=== PATIENT | female | born 1995 | race Hispanic/Latino ===

== ENCOUNTER 2018-09-04 23:50 | Emergency (ER) | payer OTHER ==
[~2018-09-04] VITALS: Ht 170.2 cm; Wt 129.3 kg
--- OUTSIDE RECORDS SUMMARY | 2018-09-04 23:52 | XMS REPORT ---
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 Allergies, Adverse Reactions, Alerts Allergy Name Allergy Type Status Severity Reaction(s) Onset Date Inactive Date Treating Clinician Comments No Known Allergies DA Active U 2017-11-01 00:00:00 Medications This patient has no known medications.
[2018-09-05] MEDS ORDERED: LABETALOL HCL 5 MG/ML 20ML VIAL IV STA (00:03)
[2018-09-05] MEDS ORDERED: SODIUM CHLORIDE 0.9% 1000ML 1,000 ML IV STA (00:03)
[2018-09-05] MEDS ORDERED: MAGNESIUM SULFATE 2 GM/50 ML IV ONE (00:15)
[2018-09-05 00:52] LABS: BASOPHILS # (AUTO) 0.1 (0.0-0.1); BASOPHILS % 0.3 % (0.0-1.0); EOSINOPHILS # (AUTO) 0.1 (0.0-0.4); EOSINOPHILS % 0.7 % (0.0-6.0); HEMOGLOBIN 9.1 g/dL (12.0-16.0); LYMPHOCYTES # (AUTO) 2.6 (1.0-3.2); LYMPHOCYTES % 18.2 % (18.0-39.1); MEAN CORPUSCULAR HEMOGLOBIN 21.9 pg (28-32); MEAN CORPUSCULAR HGB CONC 31.4 g/dL (31-35); MEAN CORPUSCULAR VOLUME 69.9 fL (81-99); MONOCYTES # (AUTO) 0.9 (0.2-0.8); MONOCYTES % 6.5 % (4.4-11.3); NEUTROPHILS # (AUTO) 10.6 (2.1-6.9); NEUTROPHILS % 73.3 % (38.7-80.0); PLATELET COUNT 316 x10e3/uL (140-360); RED BLOOD COUNT 4.15 x10e6/uL (3.6-5.1)
[2018-09-05 01:02] LABS: BILIRUBIN,URINE NEGATIVE (NEGATIVE); CLARITY,URINE CLEAR (CLEAR); COLOR,URINE YELLOW (YELLOW); KETONES,URINE NEGATIVE (NEGATIVE); LEUKOCYTE ESTERASE ,URINE NEGATIVE (NEGATIVE); NITRITE,URINE NEGATIVE (NEGATIVE); PROTEIN,URINE DIPSTICK TRACE (NEGATIVE); URINE UROBILINOGEN 0.2 mg/dL (0.2 - 1); WBC,URINE (MAN) 0-5 /HPF (0-5)
[2018-09-05 01:04] LABS: BACTERIA,URINE MANY /HPF; EPITHELIAL CELLS,URINE MANY /LPF; RBC,URINE 0-5 /HPF (0-5)
[2018-09-05 01:13] LABS: ALANINE AMINOTRANSFERASE 9 IU/L (0-55); ALBUMIN 2.7 g/dL (3.5-5.0); ALBUMIN/GLOBULIN RATIO 0.6 (0.8-2.0); ALKALINE PHOSPHATASE 124 IU/L (40-150); ANION GAP 17.2 mmol/L (8-16); BLOOD UREA NITROGEN 9 mg/dL (7-26); BUN/CREATININE RATIO 14 (6-25); CALCIUM 9.6 mg/dL (8.4-10.2); CARBON DIOXIDE 18 mmol/L (22-29); CHLORIDE 106 mmol/L (98-107); CREATININE, SERUM 0.65 mg/dL (0.57-1.11); EST GLOMERULAR FILTRATION RATE > 60 ML/MIN (60-); GLUCOSE 93 mg/dL (74-118); LIPASE 17 U/L (8-78); POTASSIUM 4.2 mmol/L (3.5-5.1); SODIUM 137 mmol/L (136-145)
[2018-09-05] MEDS ORDERED: MAGNESIUM SULFATE 2GM/50ML 100 ML IV ONE (01:43)
[2018-09-05] MEDS ORDERED: MAGNESIUM SULFATE 2GM/50ML 150 ML IV ONE (01:45)
--- NOTE | 2018-09-05 01:45 | NUR ---
PT RECEIVING X3 2GM BAGS OF MAG SULFATE OVER [address] TEJEDA.
[2018-09-05 01:58] VITALS: BP 138/88
== END 2018-09-05 01:50 | disposition short-term general hospital (02) ==
LOC: ER 23:50
DX: O11.3 Pre-existing hypertension with pre-eclampsia, third trimester (principal); R10.812 Left upper quadrant abdominal tenderness
CPT/HCPCS: 36415; 80053; 81001; 83690; 85025; 99284; J3475; J7030

== ENCOUNTER 2019-12-18 15:28 | Emergency (ER) | payer MEDICARE ==
[~2019-12-18] VITALS: Ht 170.2 cm; Wt 129.3 kg
[~2019-12-18 15:28] MED LIST: FIORICET 50-301 EACH PO
--- OUTSIDE RECORDS SUMMARY | 2019-12-18 15:32 | XMS REPORT ---
Author Author [facility] t Organization [facility] Address 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 Allergies, Adverse Reactions, Alerts Allergy Name Allergy Type Status Severity Reaction(s) Onset Date Inacti ve Date Treating Clinician Comments Source No Known Allergies DA Active U 2018-10-25 00:00:00 [facility] No Known Allergies DA Active U 2017-11-01 00:00:00 [facility] Medications Ordered Medication Name Filled Medication Name Start Date Stop Da te Current Medication? Ordering Clinician Indication Dosage Frequency Signature (SIG) Comments Components Source Butalb/Acetaminophen/Caffeine (Fioricet 50-300-40 Mg C apsule) 1 Each Capsule Butalb/Acetaminophen/Caffeine (Fioricet 50-300-40 Mg Capsule) 1 Each Capsule 2019-07-23 00:00:00 Yes Comfort Strong Do 1 Every 8 Hours [facility] Procedures Procedure Date / Time Performed Performing Clinician Sour e Computed tomography of brain without radiopaque contrast 00:00:00 [facility] Encounters Start Date/Time End Date/Time Encounter Type Admission Type [facility] Care Department Encounter ID Source 2019-07-23 15:40:00 2019-07-23 21:15:00 Departed Emergency Room 1 [facility] [id number] [facility] 2018-09-04 23:50:00 2018-09-05 01:50:00 Departed Emergency Room [facility] [id number] [facility] Results Test Description Test Time Test Comments Results Result Comments Source Novel Coronavirus 2018 nCoV 2019-12-15 07:50:00 Test Item Novel Coronavirus 2019 nCoV (test code = COVID19) Negative Nega tive Does patient have the clinical criteria consistent with COVID-19? YIs the patien t going to be discharged home? Y STREPTOCOCCUS PCR [id number] 08:22:00* Test Item Value Reference Range Interpretation Comments STREPTOCOCCUS DYSGALACTIAE (test code = STREPGC) NEGATIVE FOR G/C N EGATIVE STREPA MOLECULAR (test code = STREPAMOL) NEGATIVE FOR GRP A NEGATIV E URINALYSIS [id number] 01:18:00* Test Item Value Reference Range Interpretation Comments UA COLOR (test code = COLU) YELLOW YELLOW UA APPEARANCE (test code = APPU) CLEAR CLEAR UA GLUCOSE DIPSTICK (test code = DGLUU) norm mg/dL NEGATIVE UA BILIRUBIN DIPSTICK (test code = BILU) NEGATIVE mg/dL NEGATIVE UA KETONE DIPSTICK (test code = KETU) neg mg/dL NEGATIVE UA SPECIFIC GRAVITY (test code = SGU) 1.015 1.001-1.035 UA BLOOD DIPSTICK (test code = SHERYL) neg David/uL NEGATIVE UA PH DIPSTICK (test code = MORIS) 8.0 5.0-8.0 UA PROTEIN DIPSTICK (test code = PROU) neg mg/dL Neg-15 UA UROBILINIOGEN DIPSTICK (test code = URO) norm mg/dL 0.0-0.2 UA NITRITE DIPSTICK (test code = LUIS CARLOS) NEGATIVE NEGATIVE UA LEUKOCYTE ESTERASE DIPSTICK (test code = LEUU) 25 Jean Paul/uL (Tra ce) uL NEGATIVE A UA WBC (test code = WBCU) 3-5 per HPF 0-5 UA RBC (test code = RBCU) 0-2 per HPF 0-5 UA EPITHELIAL CELLS (test code = EPIU) Moderate (5-10/hpf) per HPF Few UA BACTERIA (test code = BACU) MODERATE per HPF NONE A Urine Source? Clean CatchUR HCG [id number] 01:18:00* Test Item Value Reference Range Interpretation Comments UR HCG QUAL (test code = HCGQLU) POSITIVE This HCGQL test is NOT applicable for MALE patients.Check with nurse about probable order error.If Tumor Marker Test needed, nurse should order test "HCGTU"(Test #550.93337) Urine Source? Clean CatchURINALYSIS [id number] 01:05:00* Test Item Value Reference Range Interpretation Comments UA COLOR (test code = COLU) YELLOW YELLOW UA APPEARANCE (test code = APPU) CLEAR CLEAR UA GLUCOSE DIPSTICK (test code = DGLUU) norm mg/dL NEGATIVE UA BILIRUBIN DIPSTICK (test code = BILU) NEGATIVE mg/dL NEGATIVE UA KETONE DIPSTICK (test code = KETU) neg mg/dL NEGATIVE UA SPECIFIC GRAVITY (test code = SGU) 1.015 1.001-1.035 UA BLOOD DIPSTICK (test code = SHERYL) neg David/uL NEGATIVE UA PH DIPSTICK (test code = MORIS) 8.0 5.0-8.0 UA PROTEIN DIPSTICK (test code = PROU) neg mg/dL Neg-15 UA UROBILINIOGEN DIPSTICK (test code = URO) norm mg/dL 0.0-0.2 UA NITRITE DIPSTICK (test code = LUIS CARLOS) NEGATIVE NEGATIVE UA LEUKOCYTE ESTERASE DIPSTICK (test code = LEUU) 25 Jean Paul/uL (Tra ce) uL NEGATIVE A UA WBC (test code = WBCU) per HPF 0-5 UA RBC (test code = RBCU) per HPF 0-5 UA EPITHELIAL CELLS (test code = EPIU) per HPF Few UA BACTERIA (test code = BACU) per HPF NONE Urine Source? Clean CatchUR HCG [id number] 01:05:00* Test Item Value Reference Range Interpretation Comments UR HCG QUAL (test code = HCGQLU) POSITIVE This HCGQL test is NOT applicable for MALE patients.Check with nurse about probable order error.If Tumor Marker Test needed, nurse should order test "HCGTU"(Test #550.77242) Urine Source? Clean CatchURINALYSIS [id number] 01:03:00* Test Item Value Reference Range Interpretation Comments UA COLOR (test code = COLU) YELLOW YELLOW UA APPEARANCE (test code = APPU) CLEAR CLEAR UA GLUCOSE DIPSTICK (test code = DGLUU) norm mg/dL NEGATIVE UA BILIRUBIN DIPSTICK (test code = BILU) NEGATIVE mg/dL NEGATIVE UA KETONE DIPSTICK (test code = KETU) neg mg/dL NEGATIVE UA SPECIFIC GRAVITY (test code = SGU) 1.015 1.001-1.035 UA BLOOD DIPSTICK (test code = SHERYL) neg David/uL NEGATIVE UA PH DIPSTICK (test code = MORIS) 8.0 5.0-8.0 UA PROTEIN DIPSTICK (test code = PROU) neg mg/dL Neg-15 UA UROBILINIOGEN DIPSTICK (test code = URO) norm mg/dL 0.0-0.2 UA NITRITE DIPSTICK (test code = LUIS CARLOS) NEGATIVE NEGATIVE UA LEUKOCYTE ESTERASE DIPSTICK (test code = LEUU) 25 Jean Paul/uL (Tra ce) uL NEGATIVE A UA WBC (test code = WBCU) per HPF 0-5 UA RBC (test code = RBCU) per HPF 0-5 UA EPITHELIAL CELLS (test code = EPIU) per HPF Few UA BACTERIA (test code = BACU) per HPF NONE Urine Source? Clean CatchUR HCG [id number] 01:03:00* Test Item Value Reference Range Interpretation Comments UR HCG QUAL (test code = HCGQLU) Urine Source? Clean Catch- US PREG UT [id number] 00:20:00 Name: ANDREAS SAINI [facility] : 1995 Age/S: 23 / F [address] [facility] Unit #: [id number] Loc: [place] [address] Phys: Holly Dudley MD Acct: [id number] Di s Date: Status: REG ER PHONE #: Exam Date: 11/18/2019 0006 FAX #: [phone] Reason: ABD PAIN AND EXAMS: CPT CODE: [id number] US PREG UT TR ANSVAGINAL [id number] AFTER HOURS SERVICE ON: 12:16 AM Pelvic Ultrasound Location Code M12 History: ABD PAIN AND Technique: Longitudi nal and transverse real-time landaverde scale and color flow evaluation was perf ormed. Doppler spectral waveform images were also obtained. TRANSABDOMINAL Findings: The uterus measures 10 x 7 x 7 cm and is anteverted. Ovaries are not visualized. TRANSVAGIN AL Findings: The uterus contains a 6 weeks, 5 days IUP. The yolk sac is visualized. heart rate is 127 bpm. There is no subchorionic hemorrhage. Right ovary measures 39 x 20 x 28 mm. Left ovary is not visualized. Adequate ovarian flow with arterial inflow and venous outflow noted. There is no free fluid. Impression: 6 weeks, 5 days live IUP. No subchorionic hemorrhage. Nonvisualization of the left ovary. at 0020 Reported and signed by: Shelia alcantara M.D. CC: Edwige Medina MD chnologist: Salma Acuña RDMS Trnscb Date/T sridevi: 11/19/2019 (0020) [email or web address] Orig Print D/T: S: 11/18 (0023) Probe: [id number] PAGE 1 Sign ed Report - DUP AB/PEL/SC [id number] 00:20:00 Name: ANDREAS SAINI [facility] : 1995 Age/S: 23 / F [address] [facility] Unit #: [id number] Loc: [place], [place] [address] Phys: Holly Dudley MD Acct: [id number] Di s Date: Status: REG ER PHONE #: Exam Date: 11/18/2019 0006 FAX #: Reason: ABD PAIN AND EXAMS: CPT CODE: [id number] DUP AB/PEL/SC COMP 11448 AFTER HOURS SERVICE ON: 12:16 AM Pelvic Ultrasound Location Code M12 History: ABD PAIN AND Technique: Longitudi nal and transverse real-time landaverde scale and color flow evaluation was perf ormed. Doppler spectral waveform images were also obtained. TRANSABDOMINAL Findings: The uterus measures 10 x 7 x 7 cm and is anteverted. Ovaries are not visualized. TRANSVAGIN AL Findings: The uterus contains a 6 weeks, 5 days IUP. The yolk sac is visualized. heart rate is 127 bpm. There is no subchorionic hemorrhage. Right ovary measures 39 x 20 x 28 mm. Left ovary is not visualized. Adequate ovarian flow with arterial inflow and venous outflow noted. There is no free fluid. Impression: 6 weeks, 5 days live IUP. No subchorionic hemorrhage. Nonvisualization of the left ovary. at 0020 Reported and signed by: Shelia alcantara M.D. CC: Edwige Medina MD chnologist: Salma Acuña RDMS Trnscb Date/T sridevi: 11/19/2019 (0020) [email or web address] Orig Print D/T: S: 11/18 (0023) Probe: PAGE 1 Sign ed Report - US PREG 1ST [id number] 00:20:00 Name: ANDREAS SAINI [facility] : 1995 Age/S: 23 / F [address] [facility] Unit #: [id number] Loc: [place] [address] Phys: Holly Dudley MD Acct: [id number] Di s Date: Status: REG ER PHONE #: Exam Date: 11/18/2019 000 FAX #: [phone] Reason: ABD PAIN AND EXAMS: CPT CODE: [id number] US PREG 1ST T RIMTR 15616 AFTER HOURS SERVICE ON: 12:16 AM Pelvic Ultrasound Location Code M12 History: ABD PAIN AND Technique: Longitudi nal and transverse real-time landaverde scale and color flow evaluation was perf ormed. Doppler spectral waveform images were also obtained. TRANSABDOMINAL Findings: The uterus measures 10 x 7 x 7 cm and is anteverted. Ovaries are not visualized. TRANSVAGIN AL Findings: The uterus contains a 6 weeks, 5 days IUP. The yolk sac is visualized. heart rate is 127 bpm. There is no subchorionic hemorrhage. Right ovary measures 39 x 20 x 28 mm. Left ovary is not visualized. Adequate ovarian flow with arterial inflow and venous outflow noted. There is no free fluid. Impression: 6 weeks, 5 days live IUP. No subchorionic hemorrhage. Nonvisualization of the left ovary. at 0020 Reported and signed by: Shelia alcantara M.D. CC: Edwige Medina MD chnologist: Salma Acuña RDND Trnscb Date/T sridevi: 11/19/2019 (0020) [email or web address] Orig Print D/T: S: 11/18 (0023) Probe: PAGE 1 Sign ed Report - US ABDOMEN [id number] 00:16:00 Name: ANDREAS SAINI [facility] : 1995 Age/S: 23 / F [address] [facility] Unit #: [id number] Loc: [place] [address] Phys: Holly Dudley MD Acct: [id number] Di s Date: Status: REG ER PHONE #: [phone] Exam Date: 11/18/2019 6114 FAX #: Reason: UPPER ABD PAIN EXAMS: CPT CODE: [id number] US ABDOMEN LTD 69851 AFTER HOURS SERVICE ON: 12:14 AM Abdominal Ultrasound, Right Upper Quadrant Location Code M12 History: UPPER ABD PAIN T echnique: Real-time landaverde scale, Doppler spectral analysis and Doppler colo r flow evaluation was performed using a dedicated transducer. Fin dings: The liver is mildly enlarged measuring 17.6 cm, coarse and echogenic, suggesting underlying hepatocellular disease which is most com monly secondary to fatty infiltration. This does not exclude other hepati c etiologies. Liver contour is not nodular. The pancreas is limited. The gallbladder is contracted. There is no pericholecystic fluid. There are no gallstones. There is no biliary dilatation. Common bile duct measures 2.9 mm. Right kidney measures 12 x 5 x 6 cm. No h ydronephrosis or calculi are seen. Margins of the right kidney are subopti elmer visualized. Adequate arterial inflow and venous outflow noted in the kidney. Aorta and IVC as visualized are within normal limits. Impression: Findings in the liver suggesting fatty infiltration. at 0016 Reported and signed by: Shelia Robert M.D. CC: Edwige Medina MD Technologist: Salma Acuña RDMS Trnnyb Date/Time: 11/19/2019 (0016) [email or web address] Orig Print D/T: S: 11/19/2019 (0019) Probe: PAGE 1 Signed Report HCG SERUM [id number] 23:51:00* Test Item Value Reference Range Interpretation Comments HCG SERUM BETA (test code = HCG) 75508.0 mIU/ml 0-5.0 H INTERPRETATION:B-HCG LEVELS <6 SHOULD BE CONSIDERED "NEGATIVE."VALUES BETWEEN 6-25 MIU/ML NEED TO BE RETESTED WITHIN 48hrs. 0-1 WEEKS AFTER CONCEPTION 0-50 MIU/ML1-2 WEEKS AFTER CONCEPTION 40-300 MIU/ML2-3 WEEKS AFTER CONCEPTION 100-1,000 MIU/ML3-4 WEEKS AFTER CONCEPTION 500-6,000 MIU/ML1-2 MONTHS AFTER CONCEPTION 5,000-200,000 MIU/ML2-3 MONTHS AFTER CONCEPTION 10,000-100,000 MIU/ML2ND TRIMESTER 3,000-50,000 MIU/ML3RD TRIMESTER 1,000-50,000 MIU/ML BASIC METABOLIC [id number] 23:34:00* Test Item Value Reference Range Interpretation Comments SODIUM (test code = NA) 139 mmol/L 136-145 N POTASSIUM (test code = K) 3.7 mmol/L 3.5-5.1 N CHLORIDE (test code = CL) 103 mmol/L 101-109 N CARBON DIOXIDE (test code = CO2) 24.9 mmol/L 21-32 N ANION GAP (test code = GAP) 15 mmol/L 10-20 N GLUCOSE (test code = GLU) 90 mg/dL 74-106 N BLOOD UREA NITROGEN (test code = BUN) 10 mg/dL 3-21 N GLOMERULAR FILTRATION RATE (test code = GFR) > 60 mL/min >=60 Estimated GFR by using Modified MDRD formula.Chronic kidney disease is defined as either kidney damageor GFR <60 mL/min/1.73 m2 for >3 months. CREATININE (test code = CREAT) 0.80 mg/dL 0.55-1.3 N BUN/CREATININE RATIO (test code = BUN/CREA) 12.5 10-20 N CALCIUM (test code = CA) 8.2 mg/dL 8.4-10.2 L HEPATIC FUNCTION [id number] 23:34:00* Test Item Value Reference Range Interpretation Comments TOTAL PROTEIN (test code = PROT) 7.7 g/dL 6.5-8.4 N ALBUMIN (test code = ALB) 3.4 g/dL 3.4-4.8 N GLOBULIN (test code = GLOB) 4.3 G/DL 1-10 N ALBUMIN/GLOBULIN RATIO (test code = A/G) 0.79 RATIO 0.75-1.50 N BILIRUBIN TOTAL (test code = BILT) 0.10 mg/dL 0.0-1.0 N BILIRUBIN DIRECT (test code = BILD) 0.10 mg/dL 0.0-0.30 N SGOT/AST (test code = AST) 14 U/L 6-32 N SGPT/ALT (test code = ALT) 19 U/L 12-78 N N ote: Change in REFERENCE RANGE due to new reagent method. ALKALINE PHOSPHATASE TOTAL (test code = ALKP) 93 U/L 38-126 N [id number] 23:34:00* Test Item Value Reference Range Interpretation Comments LIPASE (test code = LIP) 92 U/L 128-270 L CBC W/O [id number] 23:16:00* Test Item Value Reference Range Interpretation Comments WHITE BLOOD CELL (test code = WBC) 13.0 K/mm3 4.5-12.5 H RED BLOOD CELL (test code = RBC) 4.74 mill/mm3 3.7-5.2 N HEMOGLOBIN (test code = HGB) 9.6 gram/dL 11.5-15.5 L HEMATOCRIT (test code = HCT) 31.7 % 36.0-46.0 L MEAN CELL VOLUME (test code = MCV) 66.9 fL 80-98 L MEAN CELL HGB (test code = MCH) 20.3 picogram 27.0-33.0 L MEAN CELL HGB CONCETRATION (test code = MCHC) 30.3 gram/dL 33.0-36. 0 L RED CELL DISTRIBUTION WIDTH (test code = RDW) 17.4 % 11.6-16. 2 H RED CELL DISTRIBUTION WIDTH SD (test code = RDW-SD) 42.0 fL 37 .0-51.0 N PLATELET COUNT (test code = PLT) 360 K/mm3 150-450 N MEAN PLATELET VOLUME (test code = MPV) 10.6 fL 6.7-11.0 N URINALYSIS [id number] 23:06:00* Test Item Value Reference Range Interpretation Comments UA COLOR (test code = COLU) YELLOW YELLOW UA APPEARANCE (test code = APPU) CLEAR CLEAR UA GLUCOSE DIPSTICK (test code = DGLUU) norm mg/dL NEGATIVE UA BILIRUBIN DIPSTICK (test code = BILU) NEGATIVE mg/dL NEGATIVE UA KETONE DIPSTICK (test code = KETU) neg mg/dL NEGATIVE UA SPECIFIC GRAVITY (test code = SGU) 1.010 1.001-1.035 UA BLOOD DIPSTICK (test code = SHERYL) neg David/uL NEGATIVE UA PH DIPSTICK (test code = MORIS) 7.0 5.0-8.0 UA PROTEIN DIPSTICK (test code = PROU) neg mg/dL Neg-15 UA UROBILINIOGEN DIPSTICK (test code = URO) 4 mg/dL (2+) mg/dL 0.0 -0.2 A UA NITRITE DIPSTICK (test code = LUIS CARLOS) NEGATIVE NEGATIVE UA LEUKOCYTE ESTERASE DIPSTICK (test code = LEUU) 25 Jean Paul/uL (Tra ce) uL NEGATIVE A UA WBC (test code = WBCU) 5-10 per HPF 0-5 A UA RBC (test code = RBCU) 0-2 per HPF 0-5 UA EPITHELIAL CELLS (test code = EPIU) Rare (0-1/hpf) per HPF Few UA BACTERIA (test code = BACU) MODERATE per HPF NONE A Urine Source? Clean CatchUR HCG [id number] 23:06:00* Test Item Value Reference Range Interpretation Comments UR HCG QUAL (test code = HCGQLU) POSITIVE This HCGQL test is NOT applicable for MALE patients.Check with nurse about probable order error.If Tumor Marker Test needed, nurse should order test "HCGTU"(Test #550.85121) Urine Source? Clean CatchDRUGS OF ABUSE SCREEN [id number] 23:06:00* Test Item Value Reference Range Interpretation Comments URN COCAINE (test code = COCAURN) NEGATIVE NEGATIVE URN CANNABINOIDS (test code = CANNABURN) POSITIVE NEGATIVE A URN AMPHETAMINE (test code = AMPHETURN) NEGATIVE NEGATIVE URN BARBITURATE (test code = BARBITURN) NEGATIVE NEGATIVE URN BENZODIAZEPINE (test code = BENZOURN) NEGATIVE NEGATIVE URN OPIATES (test code = OPIATURN) NEGATIVE NEGATIVE URN PHENCYCLIDINE (PCP) (test code = PHENCURN) NEGATIVE NEGATIV E Urine Source? Clean CatchURINALYSIS [id number] 23:01:00* Test Item Value Reference Range Interpretation Comments UA COLOR (test code = COLU) YELLOW YELLOW UA APPEARANCE (test code = APPU) CLEAR CLEAR UA GLUCOSE DIPSTICK (test code = DGLUU) norm mg/dL NEGATIVE UA BILIRUBIN DIPSTICK (test code = BILU) NEGATIVE mg/dL NEGATIVE UA KETONE DIPSTICK (test code = KETU) neg mg/dL NEGATIVE UA SPECIFIC GRAVITY (test code = SGU) 1.010 1.001-1.035 UA BLOOD DIPSTICK (test code = SHERYL) neg David/uL NEGATIVE UA PH DIPSTICK (test code = MORIS) 7.0 5.0-8.0 UA PROTEIN DIPSTICK (test code = PROU) neg mg/dL Neg-15 UA UROBILINIOGEN DIPSTICK (test code = URO) 4 mg/dL (2+) mg/dL 0.0 -0.2 A UA NITRITE DIPSTICK (test code = LUIS CARLOS) NEGATIVE NEGATIVE UA LEUKOCYTE ESTERASE DIPSTICK (test code = LEUU) 25 Jean Paul/uL (Tra ce) uL NEGATIVE A UA WBC (test code = WBCU) 5-10 per HPF 0-5 A UA RBC (test code = RBCU) 0-2 per HPF 0-5 UA EPITHELIAL CELLS (test code = EPIU) Rare (0-1/hpf) per HPF Few UA BACTERIA (test code = BACU) MODERATE per HPF NONE A Urine Source? Clean CatchUR HCG [id number] 23:01:00* Test Item Value Reference Range Interpretation Comments UR HCG QUAL (test code = HCGQLU) POSITIVE This HCGQL test is NOT applicable for MALE patients.Check with nurse about probable order error.If Tumor Marker Test needed, nurse should order test "HCGTU"(Test #550.82469) Urine Source? Clean CatchDRUGS OF ABUSE SCREEN [id number] 23:01:00* Test Item Value Reference Range Interpretation Comments URN COCAINE (test code = COCAURN) NEGATIVE URN CANNABINOIDS (test code = CANNABURN) NEGATIVE URN AMPHETAMINE (test code = AMPHETURN) NEGATIVE URN BARBITURATE (test code = BARBITURN) NEGATIVE URN BENZODIAZEPINE (test code = BENZOURN) NEGATIVE URN OPIATES (test code = OPIATURN) NEGATIVE URN PHENCYCLIDINE (PCP) (test code = PHENCURN) NEGATIV E Urine Source? Clean CatchURINALYSIS [id number] 22:56:00* Test Item Value Reference Range Interpretation Comments UA COLOR (test code = COLU) YELLOW YELLOW UA APPEARANCE (test code = APPU) CLEAR CLEAR UA GLUCOSE DIPSTICK (test code = DGLUU) norm mg/dL NEGATIVE UA BILIRUBIN DIPSTICK (test code = BILU) NEGATIVE mg/dL NEGATIVE UA KETONE DIPSTICK (test code = KETU) neg mg/dL NEGATIVE UA SPECIFIC GRAVITY (test code = SGU) 1.010 1.001-1.035 UA BLOOD DIPSTICK (test code = SHERYL) neg David/uL NEGATIVE UA PH DIPSTICK (test code = MORIS) 7.0 5.0-8.0 UA PROTEIN DIPSTICK (test code = PROU) neg mg/dL Neg-15 UA UROBILINIOGEN DIPSTICK (test code = URO) 4 mg/dL (2+) mg/dL 0.0 -0.2 A UA NITRITE DIPSTICK (test code = LUIS CARLOS) NEGATIVE NEGATIVE UA LEUKOCYTE ESTERASE DIPSTICK (test code = LEUU) 25 Jean Paul/uL (Tra ce) uL NEGATIVE A UA WBC (test code = WBCU) per HPF 0-5 UA RBC (test code = RBCU) per HPF 0-5 UA EPITHELIAL CELLS (test code = EPIU) per HPF Few UA BACTERIA (test code = BACU) per HPF NONE Urine Source? Clean CatchUR HCG [id number] 22:56:00* Test Item Value Reference Range Interpretation Comments UR HCG QUAL (test code = HCGQLU) POSITIVE This HCGQL test is NOT applicable for MALE patients.Check with nurse about probable order error.If Tumor Marker Test needed, nurse should order test "HCGTU"(Test #550.96009) Urine Source? Clean CatchDRUGS OF ABUSE SCREEN [id number] 22:56:00* Test Item Value Reference Range Interpretation Comments URN COCAINE (test code = COCAURN) NEGATIVE URN CANNABINOIDS (test code = CANNABURN) NEGATIVE URN AMPHETAMINE (test code = AMPHETURN) NEGATIVE URN BARBITURATE (test code = BARBITURN) NEGATIVE URN BENZODIAZEPINE (test code = BENZOURN) NEGATIVE URN OPIATES (test code = OPIATURN) NEGATIVE URN PHENCYCLIDINE (PCP) (test code = PHENCURN) NEGATIV E Urine Source? Clean CatchURINALYSIS [id number] 22:55:00* Test Item Value Reference Range Interpretation Comments UA COLOR (test code = COLU) YELLOW UA APPEARANCE (test code = APPU) CLEAR UA BILIRUBIN DIPSTICK (test code = BILU) NEGATIVE UA SPECIFIC GRAVITY (test code = SGU) 1.001-1.035 UA PH DIPSTICK (test code = MORIS) 5.0-8.0 UA UROBILINIOGEN DIPSTICK (test code = URO) mg/dL 0.0-0.2 UA NITRITE DIPSTICK (test code = LUIS CARLOS) NEGATIVE UA LEUKOCYTE ESTERASE DIPSTICK (test code = LEUU) uL NEGA TIVE UA WBC (test code = WBCU) per HPF 0-5 UA RBC (test code = RBCU) per HPF 0-5 UA EPITHELIAL CELLS (test code = EPIU) per HPF Few UA BACTERIA (test code = BACU) per HPF NONE Urine Source? Clean CatchUR HCG [id number] 22:55:00* Test Item Value Reference Range Interpretation Comments UR HCG QUAL (test code = HCGQLU) POSITIVE This HCGQL test is NOT applicable for MALE patients.Check with nurse about probable order error.If Tumor Marker Test needed, nurse should order test "HCGTU"(Test #550.57387) Urine Source? Clean CatchDRUGS OF ABUSE SCREEN [id number] 22:55:00* Test Item Value Reference Range Interpretation Comments URN COCAINE (test code = COCAURN) NEGATIVE URN CANNABINOIDS (test code = CANNABURN) NEGATIVE URN AMPHETAMINE (test code = AMPHETURN) NEGATIVE URN BARBITURATE (test code = BARBITURN) NEGATIVE URN BENZODIAZEPINE (test code = BENZOURN) NEGATIVE URN OPIATES (test code = OPIATURN) NEGATIVE URN PHENCYCLIDINE (PCP) (test code = PHENCURN) NEGATIV E Urine Source? Clean CatchUrine [id number] 17:20:00* Test Item Value Reference Range Interpretation Comments Urine Color (test code = 5778-6) YELLOW YELLOW [facility] [id number] 17:20:00* Test Item Value Reference Range Interpretation Comments Urine Clarity (test code = 88903-5) SL CLOUDY CLEAR [facility] [id number] 17:20:00 * Test Item Value Reference Range Interpretation Comments Urine Specific [place] (test code = 5811-5) 1.015 1.010-1.02 5 [facility] [id number] 17:20:00* Test Item Value Reference Range Interpretation Comments Urine pH (test code = 07628-0) 6.5 5-7 [facility] Leukocyte [id number] 17:20:00* Test Item Value Reference Range Interpretation Comments Urine Leukocyte Esterase (test code = 5799-2) TRACE NEGATIVE H [facility] [id number] 17:20:00* Test Item Value Reference Range Interpretation Comments Urine Nitrite (test code = 16800-5) NEGATIVE NEGATIVE [facility] Daaqboz0870-40-74 17:20:00* Test Item Value Reference Range Interpretation Comments Urine Protein (test code = 5804-0) TRACE NEGATIVE H [facility] Glucose (UA)2019-07-23 17:20:00* Test Item Value Reference Range Interpretation Comments Urine Glucose (UA) (test code = 2349-9) NEGATIVE NEGATIVE [facility] [id number] 17:20:00* Test Item Value Reference Range Interpretation Comments Urine Ketones (test code = 62663-9) NEGATIVE NEGATIVE [facility] Xtyefbaakuoi0892-57-00 17:20:00* Test Item Value Reference Range Interpretation Comments Urine Urobilinogen (test code = 05351-3) 0.2 0.2-1 [facility] Kxoueehdr5729-92-34 17:20:00* Test Item Value Reference Range Interpretation Comments Urine Bilirubin (test code = 1978-6) SMALL NEGATIVE [facility] Pdjzg8865-50-79 17:20:00* Test Item Value Reference Range Interpretation Comments Urine Blood (test code = 35557-2) NEGATIVE [facility]GATIVE [facility] [id number] 17:20:00* Test Item Value Reference Range Interpretation Comments Urine WBC (test code = 5821-4) 6-10 0-5 H [facility] [id number] 17:20:00* Test Item Value Reference Range Interpretation Comments Urine RBC (test code = 60037-5) 0-5 0-5 [facility] [id number] 17:20:00* Test Item Value Reference Range Interpretation Comments Urine Bacteria (test code = 30296-5) RARE NONE [facility] Epithelial [id number] 17:20:00 * Test Item Value Reference Range Interpretation Comments Urine Epithelial Cells (test code = 14080-9) FEW NONE [facility] [id number] 17:20:00* Test Item Value Reference Range Interpretation Comments Urine Test (test code = 2106-3) NEGATIVE NEGATIVE [facility]IN [id number] 16:37:00 [facility] [address] [place] [address] Patient Name: ANDREAS SAINI MR #: [id number] : 1995 Age/Sex: 23/F Req #: [id number] Adm Physician: Ordered by: COMFORT STRONG DO Report #: [id number] Location: ER Room/Bed: Procedure: CT/CT BRAIN WO Exam Date: 07/23/19 Exam Time: 160 0 REPORT STATUS: Signed EXAMINAT ION: Head CT HISTORY: Severe headache for last 3 days COMPARISON: None. TECHNIQUE: Multidetector axial images were obtained without contrast from the foramen magnum to the vertex . The images were reconstructed using brain and bone algorithms. Thin section brain images were reformatted into coronal and sagittal planes. Image quality: Motion/streaking artifact limits the evaluati on of the skull base and posterior cranial fossa. Dose modulation, iterative reconstruction, and/or weight based adjustment of the mA/kV was utilized to r educe the radiation dose to as low as reasonably achievable. FINDINGS: Parenchyma: 1. No abnormal densities. 2. No mass or hemorrhage. No CT evidence of acute territorial vascular insult. Extra-ax ial spaces:No abnormal density. No extra-axial fluid collections Brain v olume: Normal for age. Ventricles: No hydrocephalus or displacement. Arteries: No density suggestive of thrombus. Dural sinuses: No abn ormal density. Extra-axial spaces: No abnormal density. Foramen magnum: No mass, Chiari malformation, or basilar invagination. Sella: No obvious mass. Paranasal/mastoid sinuses: Imaged portions unremarkable. Skull/Scalp: No lytic or blastic lesions. No fractures. IMPRESSI ON: No intracranial abnormalities. Signed by: Dr. Jolene Rubio M.D. on 07/23/2019 4:38 PM Dictated By: JOLENE RUBIO MD 37 Transcribed By: RAFAEL on 07/23/191637 COPY TO: COMFORT STRONG DO URINALYSIS [id number] 22:30:00* Test Item Value Reference Range Interpretation Comments UA COLOR (test code = COLU) YELLOW YELLOW UA APPEARANCE (test code = APPU) HAZY CLEAR A UA GLUCOSE DIPSTICK (test code = DGLUU) norm mg/dL NEGATIVE UA BILIRUBIN DIPSTICK (test code = BILU) NEGATIVE mg/dL NEGATIVE UA KETONE DIPSTICK (test code = KETU) neg mg/dL NEGATIVE UA SPECIFIC GRAVITY (test code = SGU) 1.025 1.001-1.035 UA BLOOD DIPSTICK (test code = SHERYL) 250 (4+) David/uL NEGATIVE A UA PH DIPSTICK (test code = MORIS) 6.0 5.0-8.0 UA PROTEIN DIPSTICK (test code = PROU) 15 (TRACE) mg/dL Neg-15 A UA UROBILINIOGEN DIPSTICK (test code = URO) norm mg/dL 0.0-0.2 UA NITRITE DIPSTICK (test code = LUIS CARLOS) NEGATIVE NEGATIVE UA LEUKOCYTE ESTERASE DIPSTICK (test code = LEUU) 500 Jean Paul/uL (3+) u L NEGATIVE A UA WBC (test code = WBCU) >100 per HPF 0-5 A UA RBC (test code = RBCU) >20 per HPF 0-5 UA EPITHELIAL CELLS (test code = EPIU) Moderate (5-10/hpf) per HPF Few UA BACTERIA (test code = BACU) MODERATE per HPF NONE A Urine Source? Clean CatchUR HCG [id number] 22:30:00* Test Item Value Reference Range Interpretation Comments UR HCG QUAL (test code = HCGQLU) NEGATIVE This HCGQL test is NOT applicable for MALE patients.Check with nurse about probable order error.If Tumor Marker Test needed, nurse should order test "HCGTU"(Test #550.16109) Urine Source? Clean CatchDRUGS OF ABUSE SCREEN [id number] 22:30:00* Test Item Value Reference Range Interpretation Comments URN COCAINE (test code = COCAURN) NEGATIVE NEGATIVE URN CANNABINOIDS (test code = CANNABURN) POSITIVE NEGATIVE A URN AMPHETAMINE (test code = AMPHETURN) NEGATIVE NEGATIVE URN BARBITURATE (test code = BARBITURN) NEGATIVE NEGATIVE URN BENZODIAZEPINE (test code = BENZOURN) NEGATIVE NEGATIVE URN OPIATES (test code = OPIATURN) NEGATIVE NEGATIVE URN PHENCYCLIDINE (PCP) (test code = PHENCURN) NEGATIVE NEGATIV E Urine Source? Clean CatchURINALYSIS [id number] 22:25:00* Test Item Value Reference Range Interpretation Comments UA COLOR (test code = COLU) YELLOW YELLOW UA APPEARANCE (test code = APPU) HAZY CLEAR A UA GLUCOSE DIPSTICK (test code = DGLUU) norm mg/dL NEGATIVE UA BILIRUBIN DIPSTICK (test code = BILU) NEGATIVE mg/dL NEGATIVE UA KETONE DIPSTICK (test code = KETU) neg mg/dL NEGATIVE UA SPECIFIC GRAVITY (test code = SGU) 1.025 1.001-1.035 UA BLOOD DIPSTICK (test code = SHERYL) 250 (4+) David/uL NEGATIVE A UA PH DIPSTICK (test code = MORIS) 6.0 5.0-8.0 UA PROTEIN DIPSTICK (test code = PROU) 15 (TRACE) mg/dL Neg-15 A UA UROBILINIOGEN DIPSTICK (test code = URO) norm mg/dL 0.0-0.2 UA NITRITE DIPSTICK (test code = LUIS CARLOS) NEGATIVE NEGATIVE UA LEUKOCYTE ESTERASE DIPSTICK (test code = LEUU) 500 Jean Paul/uL (3+) u L NEGATIVE A UA WBC (test code = WBCU) >100 per HPF 0-5 A UA RBC (test code = RBCU) >20 per HPF 0-5 UA EPITHELIAL CELLS (test code = EPIU) Moderate (5-10/hpf) per HPF Few UA BACTERIA (test code = BACU) MODERATE per HPF NONE A Urine Source? Clean CatchUR HCG [id number] 22:25:00* Test Item Value Reference Range Interpretation Comments UR HCG QUAL (test code = HCGQLU) NEGATIVE This HCGQL test is NOT applicable for MALE patients.Check with nurse about probable order error.If Tumor Marker Test needed, nurse should order test "HCGTU"(Test #550.63547) Urine Source? Clean CatchDRUGS OF ABUSE SCREEN [id number] 22:25:00* Test Item Value Reference Range Interpretation Comments URN COCAINE (test code = COCAURN) NEGATIVE URN CANNABINOIDS (test code = CANNABURN) NEGATIVE URN AMPHETAMINE (test code = AMPHETURN) NEGATIVE URN BARBITURATE (test code = BARBITURN) NEGATIVE URN BENZODIAZEPINE (test code = BENZOURN) NEGATIVE URN OPIATES (test code = OPIATURN) NEGATIVE URN PHENCYCLIDINE (PCP) (test code = PHENCURN) NEGATIV E Urine Source? Clean CatchCBC W/AUTO [id number] 07:21:00* Test Item Value Reference Range Interpretation Comments WHITE BLOOD CELL (test code = WBC) 12.64 x10 3/uL 4.5-11.0 H RED BLOOD CELL (test code = RBC) 4.10 x10 6/uL 3.54-5.02 N HEMOGLOBIN (test code = HGB) 8.5 g/dL 11.0-15.0 L HEMATOCRIT (test code = HCT) 29.2 % 33.0-45.0 L MEAN CELL VOLUME (test code = MCV) 71.2 fL 81.0-99.0 L MEAN CELL HGB (test code = MCH) 20.7 pg 27.0-33.0 L MEAN CELL HGB CONCETRATION (test code = MCHC) 29.1 g/dL 33.0-37. 0 L RED CELL DISTRIBUTION WIDTH CV (test code = RDW) 18.1 % 11.5- 14.5 H RED CELL DISTRIBUTION WIDTH SD (test code = RDW-SD) 45.4 fL 37 .0-54.0 N PLATELET COUNT (test code = PLT) 450 x10 3/uL 150-400 H MEAN PLATELET VOLUME (test code = MPV) 11.0 fL 7.0-9.0 H NEUTROPHIL % (test code = NT%) 71.3 % 56.0-77.0 N IMMATURE GRANULOCYTE % (test code = IG%) 1.8 % 0.0-2.0 N LYMPHOCYTE % (test code = LY%) 16.9 % 14.0-32.0 N MONOCYTE % (test code = MO%) 7.4 % 4.8-9.0 N EOSINOPHIL % (test code = EO%) 2.1 % 0.3-3.7 N BASOPHIL % (test code = BA%) 0.5 % 0.0-2.0 N NUCLEATED RBC % (test code = NRBC%) 0.2 % 0-0 H NEUTROPHIL # (test code = NT#) 9.00 x10 3/uL 2.0-7.6 H IMMATURE GRANULOCYTE # (test code = IG#) 0.23 x10 3/uL 0.00-0.03 H LYMPHOCYTE # (test code = LY#) 2.14 x10 3/uL 1.0-3.8 N MONOCYTE # (test code = MO#) 0.94 x10 3/uL 0.1-0.8 H EOSINOPHIL # (test code = EO#) 0.27 x10 3/uL 0.0-0.2 H BASOPHIL # (test code = BA#) 0.06 x10 3/uL 0.0-0.2 N NUCLEATED RBC # (test code = NRBC#) 0.02 x10 3/uL 0.0-0.1 N MANUAL DIFF REQUIRED (test code = MDIFF) NO BASIC METABOLIC [id number] 07:20:00* Test Item Value Reference Range Interpretation Comments SODIUM (test code = NA) 135 mEq/L 134-147 N POTASSIUM (test code = K) 3.4 mEq/L 3.4-5.0 N CHLORIDE (test code = CL) 95 mEq/L 100-108 L CARBON DIOXIDE (test code = CO2) 34 mEq/L 21-33 H ANION GAP (test code = GAP) 9 0-20 N GLUCOSE (test code = GLU) 90 mg/dL 70-110 N BLOOD UREA NITROGEN (test code = BUN) 33 mg/dL 7-18 H GLOMERULAR FILTRATION RATE (test code = GFR) 55.7 110-120 L Units of measure = ml/min/1.73 m2 CREATININE (test code = CREAT) 1.2 mg/dL 0.6-1.3 N CALCIUM (test code = CA) 9.4 mg/dL 8.0-10.5 N [id number] 06:25:00* Test Item Value Reference Range Interpretation Comments GLUBED (test code = GLUBED) 96 MG/DL 70-110 N Performed by certified metal pickling equipment operator at [facility] [id number] 00:54:00* Test Item Value Reference Range Interpretation Comments GLUBED (test code = GLUBED) 98 MG/DL 70-110 N Performed by certified metal pickling equipment operator at [facility] [id number] 20:52:00* Test Item Value Reference Range Interpretation Comments GLUBED (test code = GLUBED) 115 MG/DL 70-110 H Performed by certified metal pickling equipment operator at [facility] BASIC METABOLIC [id number] 18:00:00* Test Item Value Reference Range Interpretation Comments SODIUM (test code = NA) 133 mEq/L 134-147 L POTASSIUM (test code = K) 3.5 mEq/L 3.4-5.0 N CHLORIDE (test code = CL) 93 mEq/L 100-108 L CARBON DIOXIDE (test code = CO2) 36 mEq/L 21-33 H ANION GAP (test code = GAP) 8 0-20 N GLUCOSE (test code = GLU) 102 mg/dL 70-110 N BLOOD UREA NITROGEN (test code = BUN) 29 mg/dL 7-18 H GLOMERULAR FILTRATION RATE (test code = GFR) 55.7 110-120 L Units of measure = ml/min/1.73 m2 CREATININE (test code = CREAT) 1.2 mg/dL 0.6-1.3 N CALCIUM (test code = CA) 9.3 mg/dL 8.0-10.5 N [id number] 18:00:00* Test Item Value Reference Range Interpretation Comments PHOSPHOROUS (test code = PHOS) 7.7 mg/dL 2.5-4.9 H [id number] 18:00:00* Test Item Value Reference Range Interpretation Comments MAGNESIUM (test code = MAG) 2.60 mg/dL 1.8-2.4 H - XR CHEST 1 [id number] 07:52:00 FAX: Edwige Mcallister MD [phone] [place]: St: [facility] FAX: Mere Kapadia MD [phone] Name: ANDREAS SAINI [facility] : 1995 Age/S: 22/F [address] [place] [address] Unit #: [id number] Loc: [address] [place] [address] Phys: Mere Kapadia MD Acct: [id number] Dis Date: Status: ADM IN PHONE #: [phone] Exam Date: 10/31/2018 0748 FAX #: [phone] Reason: CHF EXAMS: CPT CODE: [id number] XR CHEST 1 V 52060 CHEST, SINGLE VIEW HISTORY: Congestive heart failure Comparison made to prior chest x-ray dated 10/30/18. FINDINGS: There has been interval improvement in bilateral lung infiltrates. The heart remains enlarged. No new pleural fluid. IMPRESSION: Improved CHF/pulmonary edema from 10/30/18. SL:01 at 0752 Reported and signed by: Enrique Rojas M.D. CC: Edwige Medina MD; Mere Kapadia MD Technologist: MERE Nye RT(R); Juani Hernández RT(R) Trnscjodee Kaufman ate/Time/By: 10/31/2018 (0752) : By: Bret Orig Print D/T: S: 10/18 (0755) PAGE 1 Signed Repor t BASIC METABOLIC [id number] 06:25:00* Test Item Value Reference Range Interpretation Comments SODIUM (test code = NA) 135 mEq/L 134-147 N POTASSIUM (test code = K) 3.9 mEq/L 3.4-5.0 N CHLORIDE (test code = CL) 95 mEq/L 100-108 L CARBON DIOXIDE (test code = CO2) 34 mEq/L 21-33 H ANION GAP (test code = GAP) 10 0-20 N GLUCOSE (test code = GLU) 89 mg/dL 70-110 N BLOOD UREA NITROGEN (test code = BUN) 21 mg/dL 7-18 H GLOMERULAR FILTRATION RATE (test code = GFR) 61.6 110-120 L Units of measure = ml/min/1.73 m2 CREATININE (test code = CREAT) 1.1 mg/dL 0.6-1.3 CALCIUM (test code = CA) 8.6 mg/dL 8.0-10.5 N [id number] 06:25:00* Test Item Value Reference Range Interpretation Comments MAGNESIUM (test code = MAG) 3.80 mg/dL 1.8-2.4 H CBC W/AUTO [id number] 05:51:00* Test Item Value Reference Range Interpretation Comments WHITE BLOOD CELL (test code = WBC) 17.29 x10 3/uL 4.5-11.0 H RED BLOOD CELL (test code = RBC) 3.92 x10 6/uL 3.54-5.02 N HEMOGLOBIN (test code = HGB) 8.0 g/dL 11.0-15.0 L HEMATOCRIT (test code = HCT) 27.7 % 33.0-45.0 L MEAN CELL VOLUME (test code = MCV) 70.7 fL 81.0-99.0 L MEAN CELL HGB (test code = MCH) 20.4 pg 27.0-33.0 L MEAN CELL HGB CONCETRATION (test code = MCHC) 28.9 g/dL 33.0-37. 0 L RED CELL DISTRIBUTION WIDTH CV (test code = RDW) 18.7 % 11.5- 14.5 H RED CELL DISTRIBUTION WIDTH SD (test code = RDW-SD) 46.0 fL 37 .0-54.0 N PLATELET COUNT (test code = PLT) 413 x10 3/uL 150-400 H MEAN PLATELET VOLUME (test code = MPV) 11.5 fL 7.0-9.0 H NEUTROPHIL % (test code = NT%) 79.8 % 56.0-77.0 H IMMATURE GRANULOCYTE % (test code = IG%) 1.4 % 0.0-2.0 N LYMPHOCYTE % (test code = LY%) 10.9 % 14.0-32.0 L MONOCYTE % (test code = MO%) 6.1 % 4.8-9.0 N EOSINOPHIL % (test code = EO%) 1.6 % 0.3-3.7 N BASOPHIL % (test code = BA%) 0.2 % 0.0-2.0 N NUCLEATED RBC % (test code = NRBC%) 0.1 % 0-0 H NEUTROPHIL # (test code = NT#) 13.80 x10 3/uL 2.0-7.6 H IMMATURE GRANULOCYTE # (test code = IG#) 0.25 x10 3/uL 0.00-0.03 H LYMPHOCYTE # (test code = LY#) 1.89 x10 3/uL 1.0-3.8 N MONOCYTE # (test code = MO#) 1.05 x10 3/uL 0.1-0.8 H EOSINOPHIL # (test code = EO#) 0.27 x10 3/uL 0.0-0.2 H BASOPHIL # (test code = BA#) 0.03 x10 3/uL 0.0-0.2 N NUCLEATED RBC # (test code = NRBC#) 0.02 x10 3/uL 0.0-0.1 N MANUAL DIFF REQUIRED (test code = MDIFF) NO [id number] 22:44:00* Test Item Value Reference Range Interpretation Comments POTASSIUM (test code = K) 4.3 mEq/L 3.4-5.0 N [id number] 22:44:00* Test Item Value Reference Range Interpretation Comments MAGNESIUM (test code = MAG) 5.60 mg/dL 1.8-2.4 HH - XR CHEST 1 [id number] 14:43:00 FAX: Edwige Mcallister MD [phone] [place]: St: ADM FAX: Mary Ann Mcfarland MD [phone] Name: ANDREAS SAINI [facility] : 1995 Age/S: 22/F [address] [place] [address] Unit #: [id number] Loc: G[address] [address] Phys: Mary Ann Tellez MD Acct: [id number] Dis Date: Status: ADM IN PHONE #: [phone] Exam Date: 10/30/2018 1430 FAX #: [phone] Reason: S/P CENTRAL LINE PLACEMENT EXAMS: CPT CODE: [id number] XR CHEST 1 V 62731 CHEST, SINGLE VIEW HISTORY: Central line placement Comparison made to 10/30/18, 0608 hours. FINDINGS: Left subclavian central venous catheter tip extends retrograde into the left internal jugular vein. Bilateral lung infiltrates are consistent with pulmonary edema. Interval improvement from 10/30/18, 0608 hours given better visualization of the left heart border. IMPRESSION: 1. Left subclavian central venous catheter extends retrograde into the left internal jugular vein. 2. Improved bilateral lung infiltrate, likely reflecting pulmonary edema. SL:01 at 4853 Reported and signed by: Enrique Rojas M.D. CC: Edwige Medina MD; Mary Ann Tellez MD Technologist: RT Freddie(David) Trnscrd Date/Time/By: (8167) : By: Bret Orig Print D/T: S: 10/30/2018 (5378) PAGE 1 Signed Report CBC W/AUTO [id number] 14:35:00* Test Item Value Reference Range Interpretation Comments WHITE BLOOD CELL (test code = WBC) 18.33 x10 3/uL 4.5-11.0 H RED BLOOD CELL (test code = RBC) 3.67 x10 6/uL 3.54-5.02 N HEMOGLOBIN (test code = HGB) 7.5 g/dL 11.0-15.0 L HEMATOCRIT (test code = HCT) 25.0 % 33.0-45.0 L MEAN CELL VOLUME (test code = MCV) 68.1 fL 81.0-99.0 L MEAN CELL HGB (test code = MCH) 20.4 pg 27.0-33.0 L MEAN CELL HGB CONCETRATION (test code = MCHC) 30.0 g/dL 33.0-37. 0 L RED CELL DISTRIBUTION WIDTH CV (test code = RDW) 18.3 % 11.5- 14.5 H RED CELL DISTRIBUTION WIDTH SD (test code = RDW-SD) 42.7 fL 37 .0-54.0 N PLATELET COUNT (test code = PLT) 332 x10 3/uL 150-400 N IMMATURE PLATELET FRACTION (test code = IPF) 10.0 % 0.9-11.2 N MEAN PLATELET VOLUME (test code = MPV) 11.6 fL 7.0-9.0 H NEUTROPHIL % (test code = NT%) 81.1 % 56.0-77.0 H IMMATURE GRANULOCYTE % (test code = IG%) 1.6 % 0.0-2.0 N LYMPHOCYTE % (test code = LY%) 10.6 % 14.0-32.0 L MONOCYTE % (test code = MO%) 5.2 % 4.8-9.0 N EOSINOPHIL % (test code = EO%) 1.2 % 0.3-3.7 N BASOPHIL % (test code = BA%) 0.3 % 0.0-2.0 N NUCLEATED RBC % (test code = NRBC%) 0.0 % 0-0 N NEUTROPHIL # (test code = NT#) 14.86 x10 3/uL 2.0-7.6 H IMMATURE GRANULOCYTE # (test code = IG#) 0.30 x10 3/uL 0.00-0.03 H LYMPHOCYTE # (test code = LY#) 1.94 x10 3/uL 1.0-3.8 N MONOCYTE # (test code = MO#) 0.96 x10 3/uL 0.1-0.8 H EOSINOPHIL # (test code = EO#) 0.22 x10 3/uL 0.0-0.2 H BASOPHIL # (test code = BA#) 0.05 x10 3/uL 0.0-0.2 N NUCLEATED RBC # (test code = NRBC#) 0.00 x10 3/uL 0.0-0.1 N MANUAL DIFF REQUIRED (test code = MDIFF) NO VENOUS BLOOD [id number] 12:55:00* Test Item Value Reference Range Interpretation Comments VENOUS BLOOD GAS PH (test code = PHV) 7.41 7.33-7.45 N VENOUS BLOOD GAS PCO2 (test code = PCO2V) 45 mmHg 43-47 N VENOUS BLOOD GAS PO2 (test code = PO2V) 38 mmHg 10-50 N VBG HCO3 (test code = HCO3V) 28.6 mmol/L 22-27 H VBG BASE EXCESS (test code = THEODORA) 4.0 mmol/L -4.0-4.0 N VENOUS BLOOD GAS O2 SAT. (test code = O2SATV) 72 % 60-80 N VENOUS BLOOD GAS DELIVERY (test code = DELV) Nrb mask VENOUS BLOOD GAS TEMP (test code = TEMPV) 98.6 F VENOUS BLOOD GAS SITE (test code = SITEV) Other VENOUS TCO2 (test code = TCO2V) 30 ANTINUCLEAR ANTIBODIES [id number] 12:08:00* Test Item Value Reference Range Interpretation Comments EDU SCREEN (test code = ANASCR) Negative () Negative <1:80 Borderline 1:80 Positive >1:80Performed At: [facility] [address] [place], [place] [id number] Jm El MD Ph:[phone] - XR CHEST 1 [id number] 07:21:00 FAX: Edwige Mcallister MD [phone] [place]: St: ADM FAX: Mere Kapadia MD [phone] Name: ANDREAS SAINI [facility] : 1995 Age/S: 22/F [address] [place] [address] Unit #: [id number] Loc: [address] [place] [address] Phys: Mere Kapadia MD Acct: [id number] Dis Date: Status: ADM IN PHONE #: [phone] Exam Date: 10/30/2018651 FAX #: [phone] Reason: CHF EXAMS: CPT CODE: [id number] XR CHEST 1 V 10405 CLINICAL HISTORY: CHF. COMPARISON: October 29, 2018 at 2354. Portable examination of chest is available in 2 images. Monitor leads are in place. Cardiac silhouette is normal considering degree of inspiration. There is evidence of bilateral extensive alveolar opacities present without significant interval change since previous examination. No evidence of pleural effusion is seen. Differential considerations include pulmonary edema or extensive pneumonia. Considering patient's young age and status, cardio myopathy is a consideration. Lack of pleural effusion also raises possibi lity of ARDS. IMPRESSION: Extensive bilateral alveolar opacities with differential possibilities as described above. No significant int erval change is noted since previous examination performed on October 29, 2018. at 072 1 Reported and signed by: Simone Heller M.D. CC: Edwige Medina MD; Mere Kapadia MD Technologist: Lane Seals, RT(R); Ryley Rivera RT(R) Trnscrd Date/Time/By: (0721) : By: oMise Orig Print D/T: S: 10/30/2018 (0746) PAGE 1 Signed Report [id number] 06:54:00* Test Item Value Reference Range Interpretation Comments GLUBED (test code = GLUBED) 90 MG/DL 70-110 N Performed by certified metal pickling equipment operator at [facility] B-TYPE NATRIURETIC [id number] 06:53:00* Test Item Value Reference Range Interpretation Comments B-TYPE NATRIURETIC PEPTIDE (test code = BNP) 24.4 PG/ML 0-100 N BASIC METABOLIC [id number] 06:31:00* Test Item Value Reference Range Interpretation Comments SODIUM (test code = NA) 136 mEq/L 134-147 N POTASSIUM (test code = K) 3.8 mEq/L 3.4-5.0 N CHLORIDE (test code = CL) 102 mEq/L 100-108 N CARBON DIOXIDE (test code = CO2) 26 mEq/L 21-33 N ANION GAP (test code = GAP) 12 0-20 N GLUCOSE (test code = GLU) 91 mg/dL 70-110 N BLOOD UREA NITROGEN (test code = BUN) 13 mg/dL 7-18 GLOMERULAR FILTRATION RATE (test code = GFR) 103.7 110-120 L Units of measure = ml/min/1.73 m2 CREATININE (test code = CREAT) 0.7 mg/dL 0.6-1.3 N CALCIUM (test code = CA) 7.9 mg/dL 8.0-10.5 L CBC W/AUTO [id number] 06:09:00* Test Item Value Reference Range Interpretation Comments WHITE BLOOD CELL (test code = WBC) 18.33 x10 3/uL 4.5-11.0 H RED BLOOD CELL (test code = RBC) 3.67 x10 6/uL 3.54-5.02 N HEMOGLOBIN (test code = HGB) 7.5 g/dL 11.0-15.0 L HEMATOCRIT (test code = HCT) 25.0 % 33.0-45.0 L MEAN CELL VOLUME (test code = MCV) 68.1 fL 81.0-99.0 L MEAN CELL HGB (test code = MCH) 20.4 pg 27.0-33.0 L MEAN CELL HGB CONCETRATION (test code = MCHC) 30.0 g/dL 33.0-37. 0 L RED CELL DISTRIBUTION WIDTH CV (test code = RDW) 18.3 % 11.5- 14.5 H RED CELL DISTRIBUTION WIDTH SD (test code = RDW-SD) 42.7 fL 37 .0-54.0 N PLATELET COUNT (test code = PLT) 332 x10 3/uL 150-400 N IMMATURE PLATELET FRACTION (test code = IPF) 10.0 % 0.9-11.2 N MEAN PLATELET VOLUME (test code = MPV) 11.6 fL 7.0-9.0 H NEUTROPHIL % (test code = NT%) 81.1 % 56.0-77.0 H IMMATURE GRANULOCYTE % (test code = IG%) 1.6 % 0.0-2.0 N LYMPHOCYTE % (test code = LY%) 10.6 % 14.0-32.0 L MONOCYTE % (test code = MO%) 5.2 % 4.8-9.0 N EOSINOPHIL % (test code = EO%) 1.2 % 0.3-3.7 N BASOPHIL % (test code = BA%) 0.3 % 0.0-2.0 N NUCLEATED RBC % (test code = NRBC%) 0.0 % 0-0 N NEUTROPHIL # (test code = NT#) 14.86 x10 3/uL 2.0-7.6 H IMMATURE GRANULOCYTE # (test code = IG#) 0.30 x10 3/uL 0.00-0.03 H LYMPHOCYTE # (test code = LY#) 1.94 x10 3/uL 1.0-3.8 N MONOCYTE # (test code = MO#) 0.96 x10 3/uL 0.1-0.8 H EOSINOPHIL # (test code = EO#) 0.22 x10 3/uL 0.0-0.2 H BASOPHIL # (test code = BA#) 0.05 x10 3/uL 0.0-0.2 N NUCLEATED RBC # (test code = NRBC#) 0.00 x10 3/uL 0.0-0.1 N MANUAL DIFF REQUIRED (test code = MDIFF) NO CBC W/AUTO [id number] 06:09:00* Test Item Value Reference Range Interpretation Comments WHITE BLOOD CELL (test code = WBC) 18.33 x10 3/uL 4.5-11.0 H RED BLOOD CELL (test code = RBC) 3.67 x10 6/uL 3.54-5.02 N HEMOGLOBIN (test code = HGB) 7.5 g/dL 11.0-15.0 L HEMATOCRIT (test code = HCT) 25.0 % 33.0-45.0 L MEAN CELL VOLUME (test code = MCV) 68.1 fL 81.0-99.0 L MEAN CELL HGB (test code = MCH) 20.4 pg 27.0-33.0 L MEAN CELL HGB CONCETRATION (test code = MCHC) 30.0 g/dL 33.0-37. 0 L RED CELL DISTRIBUTION WIDTH CV (test code = RDW) 18.3 % 11.5- 14.5 H RED CELL DISTRIBUTION WIDTH SD (test code = RDW-SD) 42.7 fL 37 .0-54.0 N PLATELET COUNT (test code = PLT) 332 x10 3/uL 150-400 N IMMATURE PLATELET FRACTION (test code = IPF) 10.0 % 0.9-11.2 N MEAN PLATELET VOLUME (test code = MPV) 11.6 fL 7.0-9.0 H NEUTROPHIL % (test code = NT%) 81.1 % 56.0-77.0 H IMMATURE GRANULOCYTE % (test code = IG%) 1.6 % 0.0-2.0 N LYMPHOCYTE % (test code = LY%) 10.6 % 14.0-32.0 L MONOCYTE % (test code = MO%) 5.2 % 4.8-9.0 N EOSINOPHIL % (test code = EO%) 1.2 % 0.3-3.7 N BASOPHIL % (test code = BA%) 0.3 % 0.0-2.0 N NUCLEATED RBC % (test code = NRBC%) 0.0 % 0-0 N NEUTROPHIL # (test code = NT#) 14.86 x10 3/uL 2.0-7.6 H IMMATURE GRANULOCYTE # (test code = IG#) 0.30 x10 3/uL 0.00-0.03 H LYMPHOCYTE # (test code = LY#) 1.94 x10 3/uL 1.0-3.8 N MONOCYTE # (test code = MO#) 0.96 x10 3/uL 0.1-0.8 H EOSINOPHIL # (test code = EO#) 0.22 x10 3/uL 0.0-0.2 H BASOPHIL # (test code = BA#) 0.05 x10 3/uL 0.0-0.2 N NUCLEATED RBC # (test code = NRBC#) 0.00 x10 3/uL 0.0-0.1 N MANUAL DIFF REQUIRED (test code = MDIFF) NO [id number] 00:59:00* Test Item Value Reference Range Interpretation Comments GLUBED (test code = GLUBED) 94 MG/DL 70-110 N Performed by certified metal pickling equipment operator at [facility] - XR CHEST 1 [id number] 00:16:00 FAX: Edwige Mcallister MD [phone] [place]: St: ADM FAX: Mary Ann Mcfarland MD [phone] Name: ANDREAS SAINI [facility] : 1995 Age/S: 22/F [address] [place] [address] Unit #: [id number] Loc: G.22 [place] [address] Phys: Mary Ann Tellez MD Acct: [id number] Dis Date: Status: ADM IN PHONE #: [phone] Exam Date: 10/29/2018 0010 FAX #: [phone] Reason: SOB, COUGH EXAMS: CPT CODE: [id number] XR CHEST 1 V [id number] EXAM: CR, XR chest one view: 10/29/2018, 2352 hours HISTORY: SOB, COUGH TECHNIQUE: 1 view of the chest. COMPARISON: 10/29/2018, 0527 hours FINDINGS: Trachea is midline. Heart is normal in size. Low lung volume with extensive bilateral airspace opacities, worsened. Pulmonary vascularity is indistinct. There is no pleural effusion or pneumothorax. Osseous structures are stable. IMPRESSION: Extensive bilateral pulmonary opacities which may represent pulmonary edema or multifocal pneumonia, worsened since prior study. SL: [[id number]] at 0016 Reported and signed by: Pedro Nash M.D. CC: Edwige Medina MD; Mary Ann Tellez MD Technologist: Lane Seals, RT(R); Ryley Rivera RT(R) Trnnyrd Date/Time/By: 10/30/2018 (0016) : By: [email or web address] Orig Print D/T: S: 10/30/2018 (0019) PAGE 1 Signed Report [id number] 21:03:00* Test Item Value Reference Range Interpretation Comments GLUBED (test code = GLUBED) 148 MG/DL 70-110 H Performed by certified metal pickling equipment operator at [facility] B-TYPE NATRIURETIC [id number] 20:49:00* Test Item Value Reference Range Interpretation Comments B-TYPE NATRIURETIC PEPTIDE (test code = BNP) 48.4 PG/ML 0-100 N [id number] 13:51:00* Test Item Value Reference Range Interpretation Comments GLUBED (test code = GLUBED) 116 MG/DL 70-110 H Performed by certified metal pickling equipment operator at [facility] ARTERIAL BLOOD [id number] 13:48:00* Test Item Value Reference Range Interpretation Comments ARTERIAL BLOOD GAS PH (test code = PHA) 7.422 7.35-7.45 N ARTERIAL BLOOD GAS PCO2 (test code = PCO2A) 38.4 mmHg 35-45 N ARTERIAL BLOOD GAS PO2 (test code = PO2A) 105 mmHg 80-100 H BICARBONATE TOTAL HCO3 (test code = HCO3) 25.0 mmol/L 22.0-26.0 N BASE EXCESS (test code = YVONNE) 1.0 mmol/L -4-4 N ABG O2 SATURATION (test code = SATA) 98 % 90-100 N FIO2 (test code = FIO2A) 60 % ABG DELIVERY (test code = JOYCE) Bipap ABG VENT RESP RATE (test code = RRA) 12 /MIN Performed by certified metal pickling equipment operator at [facility] ABG TEMPERATURE (test code = TEMPA) 99.0 F ABG SITE (test code = SITEA) R Rad PREDICTED AA GRADIENT (test code = AP) 99 PREDICTED PO2 (test code = OP) 283 a/A RATIO (test code = RATIO) 0.28 TCO2 ARTERIAL (test code = TCO2A) 26 A-A GRADIENT (test code = AAGRADE) 277 - XR CHEST 1 [id number] 07:46:00 FAX: Edwige Mcallister MD [phone] [place]: St: ADM FAX: Mere Kapadia MD [phone] Name: ANDREAS SAINI [facility] : 1995 Age/S: 22/F [address] [place] [address] Unit #: [id number] Loc: G.M[address] [place] [address] Phys: Mere Kapadia MD Acct: [id number] Dis Date: Status: ADM IN PHONE #: [phone] Exam Date: 10/29/2018 0539 FAX #: [phone] Reason: evaluate infiltrate EXAMS: CPT CODE: [id number] XR CHEST 1 V [id number] CHEST 1 VIEW: 10/29/2018 COMPARISON: October 27, [address] chest dated October 27, 2018 CLINICAL HISTORY: evaluate infiltrate FINDINGS: Cardiomediastinal silhouette is prominent but stable in size. Bilateral primarily perihilar infiltrates are again seen. Findings appear slightly worsened. No pneumothorax identified. IMPRESSION: Bilateral perihilar infiltrates, slightly worsened. Findings are suspicious for pulmonary edema. Multifocal pneumonia is not excluded. at 0746 Reported and signed by: Guy Ryan M.D. CC: Edwige Medina MD; Mere Kapadia MD Technologist: Katie Escalante, RT(R); RT Jamal(R) Trnscrd Date/Time/By: 10/29/2018 (0746) : By: [email or web address] Orig Print D/T: S: 10/29/2018 (0749) PAGE 1 Signed Report PROCALCITONIN (PCT)2018-10-29 07:37:00* Test Item Value Reference Range Interpretation Comments PROCALCITONIN (PCT) (test code = PROCAL) 0.08 ng/mL 0.00-0.05 H PROCALCITONIN (PCT) NORMAL RANGE (ADULT): <0.05 NG/ML. * a concentration <0.5 ng/mL represents a low risk of severe sepsis and/or septic shock.* a concentration >2 ng/mL represents a high risk of severe sepsis and/or septic shock.Nevertheless, concentrations <0.5 ng/mL do not exclude aninfection, on account of localized infections (withoutsystemic signs) which can be associated with such lowconcentrations, or a systemic infection in its initialstages (< 6 hours). Furthermore, increased procalcitonincan occur without infection. PCT concentrations between 0.5and 2.0 ng/mL should be interpreted taking into account thepatient's history. It is recommended to retest PCT within6-24 hours if any concentrations <2 ng/mL are obtained. BASIC METABOLIC [id number] 06:08:00* Test Item Value Reference Range Interpretation Comments SODIUM (test code = NA) 137 mEq/L 134-147 N POTASSIUM (test code = K) 3.9 mEq/L 3.4-5.0 N CHLORIDE (test code = CL) 104 mEq/L 100-108 N CARBON DIOXIDE (test code = CO2) 25 mEq/L 21-33 N ANION GAP (test code = GAP) 12 0-20 N GLUCOSE (test code = GLU) 107 mg/dL 70-110 BLOOD UREA NITROGEN (test code = BUN) 9 mg/dL 7-18 GLOMERULAR FILTRATION RATE (test code = GFR) 123.9 110-120 H Units of measure = ml/min/1.73 m2 CREATININE (test code = CREAT) 0.6 mg/dL 0.6-1.3 N CALCIUM (test code = CA) 8.0 mg/dL 8.0-10.5 N CBC W/AUTO [id number] 05:59:00* Test Item Value Reference Range Interpretation Comments WHITE BLOOD CELL (test code = WBC) 21.69 x10 3/uL 4.5-11.0 H RED BLOOD CELL (test code = RBC) 3.98 x10 6/uL 3.54-5.02 N HEMOGLOBIN (test code = HGB) 8.2 g/dL 11.0-15.0 L HEMATOCRIT (test code = HCT) 26.9 % 33.0-45.0 L MEAN CELL VOLUME (test code = MCV) 67.6 fL 81.0-99.0 L MEAN CELL HGB (test code = MCH) 20.6 pg 27.0-33.0 L MEAN CELL HGB CONCETRATION (test code = MCHC) 30.5 g/dL 33.0-37. 0 L RED CELL DISTRIBUTION WIDTH CV (test code = RDW) 18.0 % 11.5- 14.5 H RED CELL DISTRIBUTION WIDTH SD (test code = RDW-SD) 41.8 fL 37 .0-54.0 N PLATELET COUNT (test code = PLT) 317 x10 3/uL 150-400 N MEAN PLATELET VOLUME (test code = MPV) 11.4 fL 7.0-9.0 H NEUTROPHIL % (test code = NT%) 87.1 % 56.0-77.0 H IMMATURE GRANULOCYTE % (test code = IG%) 2.1 % 0.0-2.0 H LYMPHOCYTE % (test code = LY%) 5.9 % 14.0-32.0 L MONOCYTE % (test code = MO%) 3.9 % 4.8-9.0 L EOSINOPHIL % (test code = EO%) 0.8 % 0.3-3.7 N BASOPHIL % (test code = BA%) 0.2 % 0.0-2.0 N NUCLEATED RBC % (test code = NRBC%) 0.1 % 0-0 H NEUTROPHIL # (test code = NT#) 18.86 x10 3/uL 2.0-7.6 H IMMATURE GRANULOCYTE # (test code = IG#) 0.46 x10 3/uL 0.00-0.03 H LYMPHOCYTE # (test code = LY#) 1.29 x10 3/uL 1.0-3.8 N MONOCYTE # (test code = MO#) 0.85 x10 3/uL 0.1-0.8 H EOSINOPHIL # (test code = EO#) 0.18 x10 3/uL 0.0-0.2 N BASOPHIL # (test code = BA#) 0.05 x10 3/uL 0.0-0.2 N NUCLEATED RBC # (test code = NRBC#) 0.03 x10 3/uL 0.0-0.1 N MANUAL DIFF REQUIRED (test code = MDIFF) NO [id number] 04:12:00* Test Item Value Reference Range Interpretation Comments GLUBED (test code = GLUBED) 108 MG/DL 70-110 N Performed by certified metal pickling equipment operator at [facility] [id number] 00:41:00* Test Item Value Reference Range Interpretation Comments GLUBED (test code = GLUBED) 119 MG/DL 70-110 H Performed by certified metal pickling equipment operator at [facility] [id number] 20:27:00* Test Item Value Reference Range Interpretation Comments GLUBED (test code = GLUBED) 96 MG/DL 70-110 N Performed by certified metal pickling equipment operator at [facility] [id number] 16:14:00* Test Item Value Reference Range Interpretation Comments GLUBED (test code = GLUBED) 96 MG/DL 70-110 N Performed by certified metal pickling equipment operator at [facility] ARTERIAL BLOOD [id number] 14:16:00* Test Item Value Reference Range Interpretation Comments ARTERIAL BLOOD GAS PH (test code = PHA) 7.405 7.35-7.45 N ARTERIAL BLOOD GAS PCO2 (test code = PCO2A) 36.6 mmHg 35-45 N ARTERIAL BLOOD GAS PO2 (test code = PO2A) 79 mmHg 80-100 L BICARBONATE TOTAL HCO3 (test code = HCO3) 23.0 mmol/L 22.0-26.0 N BASE EXCESS (test code = YVONNE) -2.0 mmol/L -4-4 N ABG O2 SATURATION (test code = SATA) 96 % 90-100 N ABG TEMPERATURE (test code = TEMPA) 98.0 F ABG SITE (test code = SITEA) R Rad Performed by certified metal pickling equipment operator at [facility] TCO2 ARTERIAL (test code = TCO2A) 24 [id number] 12:03:00* Test Item Value Reference Range Interpretation Comments GLUBED (test code = GLUBED) 144 MG/DL 70-110 H Performed by certified metal pickling equipment operator at [facility] CBC W/AUTO [id number] 11:57:00* Test Item Value Reference Range Interpretation Comments WHITE BLOOD CELL (test code = WBC) 21.70 x10 3/uL 4.5-11.0 H RED BLOOD CELL (test code = RBC) 4.19 x10 6/uL 3.54-5.02 N HEMOGLOBIN (test code = HGB) 8.7 g/dL 11.0-15.0 L HEMATOCRIT (test code = HCT) 29.2 % 33.0-45.0 L MEAN CELL VOLUME (test code = MCV) 69.7 fL 81.0-99.0 L MEAN CELL HGB (test code = MCH) 20.8 pg 27.0-33.0 L MEAN CELL HGB CONCETRATION (test code = MCHC) 29.8 g/dL 33.0-37. 0 L RED CELL DISTRIBUTION WIDTH CV (test code = RDW) 18.1 % 11.5- 14.5 H RED CELL DISTRIBUTION WIDTH SD (test code = RDW-SD) 43.6 fL 37 .0-54.0 N PLATELET COUNT (test code = PLT) 319 x10 3/uL 150-400 N IMMATURE PLATELET FRACTION (test code = IPF) 10.6 % 0.9-11.2 N MEAN PLATELET VOLUME (test code = MPV) 11.3 fL 7.0-9.0 H NEUTROPHIL % (test code = NT%) 84.7 % 56.0-77.0 H IMMATURE GRANULOCYTE % (test code = IG%) 1.5 % 0.0-2.0 N LYMPHOCYTE % (test code = LY%) 9.4 % 14.0-32.0 L MONOCYTE % (test code = MO%) 3.5 % 4.8-9.0 L EOSINOPHIL % (test code = EO%) 0.6 % 0.3-3.7 N BASOPHIL % (test code = BA%) 0.3 % 0.0-2.0 N NUCLEATED RBC % (test code = NRBC%) 0.1 % 0-0 H NEUTROPHIL # (test code = NT#) 18.35 x10 3/uL 2.0-7.6 H IMMATURE GRANULOCYTE # (test code = IG#) 0.33 x10 3/uL 0.00-0.03 H LYMPHOCYTE # (test code = LY#) 2.05 x10 3/uL 1.0-3.8 N MONOCYTE # (test code = MO#) 0.77 x10 3/uL 0.1-0.8 N EOSINOPHIL # (test code = EO#) 0.13 x10 3/uL 0.0-0.2 N BASOPHIL # (test code = BA#) 0.07 x10 3/uL 0.0-0.2 N NUCLEATED RBC # (test code = NRBC#) 0.02 x10 3/uL 0.0-0.1 N MANUAL DIFF REQUIRED (test code = MDIFF) NO PROCALCITONIN (PCT)2018-10-28 09:51:00* Test Item Value Reference Range Interpretation Comments PROCALCITONIN (PCT) (test code = PROCAL) 0.06 ng/mL 0.00-0.05 H PROCALCITONIN (PCT) NORMAL RANGE (ADULT): <0.05 NG/ML. * a concentration <0.5 ng/mL represents a low risk of severe sepsis and/or septic shock.* a concentration >2 ng/mL represents a high risk of severe sepsis and/or septic shock.Nevertheless, concentrations <0.5 ng/mL do not exclude aninfection, on account of localized infections (withoutsystemic signs) which can be associated with such lowconcentrations, or a systemic infection in its initialstages (< 6 hours). Furthermore, increased procalcitonincan occur without infection. PCT concentrations between 0.5and 2.0 ng/mL should be interpreted taking into account thepatient's history. It is recommended to retest PCT within6-24 hours if any concentrations <2 ng/mL are obtained. [id number] 08:24:00* Test Item Value Reference Range Interpretation Comments GLUBED (test code = GLUBED) 87 MG/DL 70-110 N Performed by certified metal pickling equipment operator at [facility] LIPID PROFILE (CORONARY RISK)2018-10-28 05:06:00* Test Item Value Reference Range Interpretation Comments TRIGLYCERIDES (test code = TRIG) 203 mg/dL 40-150 H CHOLESTEROL (test code = CHOL) 160 mg/dL <200 CHOLESTEROL/HDL RATIO (test code = CHOLHDL) 2.91 RATIO 3.27-4.44 L RISK ASSOCIATED WITH CHOL/HDL RATIOS: RISK MALE FEMALE1/2 AVERAGE 3.43 3.27AVERAGE 4.97 4.442X AVERAGE 9.55 7.053X AVERAGE 23.39 11.04 NOTE THAT THE REFERENCE VALUE IS RELATEDTO RISK LEVELS RECOMMENDED BY THE NATL.HEART, LUNG, AND BLOOD INST. HDL CHOLESTEROL (test code = HDL) 55.0 mg/dL 39-96 N LIPOPROTEIN LDL (test code = LDL) 74 mg/dL 0-100 N <100 [id number] NEAR OPTIMAL/ABOVE [id number] HIGH>EI=874 VERY HIGH*Guidelines provided by the National Cholesterol EducationProgram Adult Treatment Panel III T4 [id number] 05:06:00* Test Item Value Reference Range Interpretation Comments T4 FREE (test code = T4F) 1.4 ng/dL 0.77-1.61 N THYROID STIMULATING [id number] 05:06:00* Test Item Value Reference Range Interpretation Comments THYROID STIMULATING HORMONE (test code = TSH) 1.92 0.42-5.4 7 N Results in shraddha- International Units/mL BASIC METABOLIC [id number] 04:57:00* Test Item Value Reference Range Interpretation Comments SODIUM (test code = NA) 137 mEq/L 134-147 N POTASSIUM (test code = K) 4.0 mEq/L 3.4-5.0 N CHLORIDE (test code = CL) 107 mEq/L 100-108 N CARBON DIOXIDE (test code = CO2) 23 mEq/L 21-33 N ANION GAP (test code = GAP) 11 0-20 N GLUCOSE (test code = GLU) 84 mg/dL 70-110 N BLOOD UREA NITROGEN (test code = BUN) 6 mg/dL 7-18 L GLOMERULAR FILTRATION RATE (test code = GFR) 123.9 110-120 H Units of measure = ml/min/1.73 m2 CREATININE (test code = CREAT) 0.6 mg/dL 0.6-1.3 N CALCIUM (test code = CA) 8.1 mg/dL 8.0-10.5 N CALCIUM [id number] 04:57:00* Test Item Value Reference Range Interpretation Comments CALCIUM IONIZED (test code = BOB) 1.09 MMOL/L 1.12-1.32 L BASIC METABOLIC [id number] 04:56:00* Test Item Value Reference Range Interpretation Comments SODIUM (test code = NA) 137 mEq/L 134-147 N POTASSIUM (test code = K) 4.0 mEq/L 3.4-5.0 N CHLORIDE (test code = CL) 107 mEq/L 100-108 N CARBON DIOXIDE (test code = CO2) 23 mEq/L 21-33 N ANION GAP (test code = GAP) 11 0-20 N GLUCOSE (test code = GLU) 84 mg/dL 70-110 N BLOOD UREA NITROGEN (test code = BUN) 6 mg/dL 7-18 L GLOMERULAR FILTRATION RATE (test code = GFR) 123.9 110-120 H Units of measure = ml/min/1.73 m2 CREATININE (test code = CREAT) 0.6 mg/dL 0.6-1.3 N CALCIUM (test code = CA) 8.1 mg/dL 8.0-10.5 N CALCIUM [id number] 04:56:00* Test Item Value Reference Range Interpretation Comments CALCIUM IONIZED (test code = BOB) MMOL/L 1.12-1.32 HGBA1C%2018-10-28 04:51:00* Test Item Value Reference Range Interpretation Comments HGBA1C% (test code = HGBA1C%) 6.0 %A1C 4.8-6.0 N [id number] 02:32:00* Test Item Value Reference Range Interpretation Comments MAGNESIUM (test code = MAG) 2.20 mg/dL 1.8-2.4 CALCIUM [id number] 23:40:00* Test Item Value Reference Range Interpretation Comments CALCIUM IONIZED (test code = BOB) 1.14 MMOL/L 1.12-1.32 N PROCALCITONIN (PCT)2018-10-27 21:59:00* Test Item Value Reference Range Interpretation Comments PROCALCITONIN (PCT) (test code = PROCAL) 0.08 ng/mL 0.00-0.05 H PROCALCITONIN (PCT) NORMAL RANGE (ADULT): <0.05 NG/ML. * a concentration <0.5 ng/mL represents a low risk of severe sepsis and/or septic shock.* a concentration >2 ng/mL represents a high risk of severe sepsis and/or septic shock.Nevertheless, concentrations <0.5 ng/mL do not exclude aninfection, on account of localized infections (withoutsystemic signs) which can be associated with such lowconcentrations, or a systemic infection in its initialstages (< 6 hours). Furthermore, increased procalcitonincan occur without infection. PCT concentrations between 0.5and 2.0 ng/mL should be interpreted taking into account thepatient's history. It is recommended to retest PCT within6-24 hours if any concentrations <2 ng/mL are obtained. UA CULT [id number] 21:45:00* Test Item Value Reference Range Interpretation Comments UA WBC (test code = WBCU) 0-3 WBC/HPF 0-3 UA SQUAMOUS CELLS (test code = SQU) 0-5 /HPF NONE SEEN UA CULTURE NEEDED? (test code = UACULT) NO, WBC<10 Criteria Culture Chk Criteria not met, Urine Culture cancelled. B-TYPE NATRIURETIC [id number] 20:41:00* Test Item Value Reference Range Interpretation Comments B-TYPE NATRIURETIC PEPTIDE (test code = BNP) 90.6 PG/ML 0-100 N CBC W/AUTO [id number] 20:36:00* Test Item Value Reference Range Interpretation Comments WHITE BLOOD CELL (test code = WBC) 21.83 x10 3/uL 4.5-11.0 H RED BLOOD CELL (test code = RBC) 3.89 x10 6/uL 3.54-5.02 N HEMOGLOBIN (test code = HGB) 8.1 g/dL 11.0-15.0 L HEMATOCRIT (test code = HCT) 26.8 % 33.0-45.0 L MEAN CELL VOLUME (test code = MCV) 68.9 fL 81.0-99.0 L MEAN CELL HGB (test code = MCH) 20.8 pg 27.0-33.0 L MEAN CELL HGB CONCETRATION (test code = MCHC) 30.2 g/dL 33.0-37. 0 L RED CELL DISTRIBUTION WIDTH CV (test code = RDW) 18.0 % 11.5- 14.5 H RED CELL DISTRIBUTION WIDTH SD (test code = RDW-SD) 43.3 fL 37 .0-54.0 N PLATELET COUNT (test code = PLT) 295 x10 3/uL 150-400 N IMMATURE PLATELET FRACTION (test code = IPF) 10.4 % 0.9-11.2 N MEAN PLATELET VOLUME (test code = MPV) 12.4 fL 7.0-9.0 H NEUTROPHIL % (test code = NT%) 85.5 % 56.0-77.0 H IMMATURE GRANULOCYTE % (test code = IG%) 1.1 % 0.0-2.0 N LYMPHOCYTE % (test code = LY%) 9.2 % 14.0-32.0 L MONOCYTE % (test code = MO%) 3.4 % 4.8-9.0 L EOSINOPHIL % (test code = EO%) 0.5 % 0.3-3.7 N BASOPHIL % (test code = BA%) 0.3 % 0.0-2.0 N NUCLEATED RBC % (test code = NRBC%) 0.2 % 0-0 H NEUTROPHIL # (test code = NT#) 18.67 x10 3/uL 2.0-7.6 H IMMATURE GRANULOCYTE # (test code = IG#) 0.23 x10 3/uL 0.00-0.03 H LYMPHOCYTE # (test code = LY#) 2.00 x10 3/uL 1.0-3.8 N MONOCYTE # (test code = MO#) 0.75 x10 3/uL 0.1-0.8 N EOSINOPHIL # (test code = EO#) 0.12 x10 3/uL 0.0-0.2 N BASOPHIL # (test code = BA#) 0.06 x10 3/uL 0.0-0.2 N NUCLEATED RBC # (test code = NRBC#) 0.05 x10 3/uL 0.0-0.1 N MANUAL DIFF REQUIRED (test code = MDIFF) NO RBC [id number] 20:36:00* Test Item Value Reference Range Interpretation Comments POLYCHROMASIA (test code = POLC) 2+ ANISOCYTOSIS (test code = ANISO) 3+ MICROCYTOSIS (test code = MICR) 3+ PROTHROMBIN [id number] 20:30:00* Test Item Value Reference Range Interpretation Comments PROTHROMBIN TIME PATIENT (test code = PTP) 10.4 SECONDS 9.3-12.9 N INTERNATIONAL NORMAL RATIO (test code = INR) 0.9 0.8-1.2 N TARGET INR BY INDICATION Indication INR1. Prophylaxis of venous thrombosis 2.0 - 3.0 (orthopedic surgery), Prophylaxis of venous thrombosis (other than high-risk surgery), Treatment of Deep Vein Thrombosis/Pulmonary Embolism, Prevention of systemic embolism - Tissue heart valves, Acute Myocardial Infarction (to prevent systemic embolism), Valvular heart disease, Atrial Fibrillation, Bileaflet mechanical valve in aortic position.2. Mechanical prosthetic valves (high risk), 2.5 - 3.5 Presence of Lupus Anticoagulant or Antiphospholipid Antibodies, Prevention of systemic embolism - Acute Myocardial Infarction (to prevent recurrent infarct). THROMBOPLASTIN TIME [id number] 20:30:00* Test Item Value Reference Range Interpretation Comments THROMBOPLASTIN TIME PARTIAL (test code = PTT) 24.1 Seconds 25.0-39. 5 L Therapeutic Range: 61.8-83.8 Sec Effective 08/17/2013 COMPREHENSIVE METABOLIC [id number] 20:24:00* Test Item Value Reference Range Interpretation Comments SODIUM (test code = NA) 136 mEq/L 134-147 N POTASSIUM (test code = K) 4.2 mEq/L 3.4-5.0 N CHLORIDE (test code = CL) 106 mEq/L 100-108 N CARBON DIOXIDE (test code = CO2) 23 mEq/L 21-33 N ANION GAP (test code = GAP) 11 0-20 N GLUCOSE (test code = GLU) 76 mg/dL 70-110 N BLOOD UREA NITROGEN (test code = BUN) 9 mg/dL 7-18 N GLOMERULAR FILTRATION RATE (test code = GFR) 103.7 110-120 L Units of measure = ml/min/1.73 m2 CREATININE (test code = CREAT) 0.7 mg/dL 0.6-1.3 N TOTAL PROTEIN (test code = PROT) 6.2 g/dL 6.4-8.2 L ALBUMIN (test code = ALB) 2.20 g/dL 3.4-5.0 L CALCIUM (test code = CA) 8.2 mg/dL 8.0-10.5 N BILIRUBIN TOTAL (test code = BILT) 0.20 mg/dL 0.0-1.0 N SGOT/AST (test code = AST) 18 IUnit/L 15-37 N SGPT/ALT (test code = ALT) 13 IUnit/L 15-65 L ALKALINE PHOSPHATASE TOTAL (test code = ALKP) 132 IUnit/L 20-125 H CALCIUM [id number] 20:24:00* Test Item Value Reference Range Interpretation Comments CALCIUM IONIZED (test code = BOB) 1.14 MMOL/L 1.12-1.32 N COMPREHENSIVE METABOLIC [id number] 20:23:00* Test Item Value Reference Range Interpretation Comments SODIUM (test code = NA) 136 mEq/L 134-147 N POTASSIUM (test code = K) 4.2 mEq/L 3.4-5.0 N CHLORIDE (test code = CL) 106 mEq/L 100-108 N CARBON DIOXIDE (test code = CO2) 23 mEq/L 21-33 N ANION GAP (test code = GAP) 11 0-20 N GLUCOSE (test code = GLU) 76 mg/dL 70-110 N BLOOD UREA NITROGEN (test code = BUN) 9 mg/dL 7-18 N GLOMERULAR FILTRATION RATE (test code = GFR) 103.7 110-120 L Units of measure = ml/min/1.73 m2 CREATININE (test code = CREAT) 0.7 mg/dL 0.6-1.3 N TOTAL PROTEIN (test code = PROT) 6.2 g/dL 6.4-8.2 L ALBUMIN (test code = ALB) 2.20 g/dL 3.4-5.0 L CALCIUM (test code = CA) 8.2 mg/dL 8.0-10.5 N BILIRUBIN TOTAL (test code = BILT) 0.20 mg/dL 0.0-1.0 N SGOT/AST (test code = AST) 18 IUnit/L 15-37 N SGPT/ALT (test code = ALT) 13 IUnit/L 15-65 L ALKALINE PHOSPHATASE TOTAL (test code = ALKP) 132 IUnit/L 20-125 H CALCIUM [id number] 20:23:00* Test Item Value Reference Range Interpretation Comments CALCIUM IONIZED (test code = BOB) MMOL/L 1.12-1.32 LACTIC [id number] 20:11:00* Test Item Value Reference Range Interpretation Comments LACTIC ACID (test code = LACT) 1.1 mmol/L 0.4-1.9 N CBC W/AUTO [id number] 20:07:00* Test Item Value Reference Range Interpretation Comments WHITE BLOOD CELL (test code = WBC) 21.83 x10 3/uL 4.5-11.0 H RED BLOOD CELL (test code = RBC) 3.89 x10 6/uL 3.54-5.02 N HEMOGLOBIN (test code = HGB) 8.1 g/dL 11.0-15.0 L HEMATOCRIT (test code = HCT) 26.8 % 33.0-45.0 L MEAN CELL VOLUME (test code = MCV) 68.9 fL 81.0-99.0 L MEAN CELL HGB (test code = MCH) 20.8 pg 27.0-33.0 L MEAN CELL HGB CONCETRATION (test code = MCHC) 30.2 g/dL 33.0-37. 0 L RED CELL DISTRIBUTION WIDTH CV (test code = RDW) 18.0 % 11.5- 14.5 H RED CELL DISTRIBUTION WIDTH SD (test code = RDW-SD) 43.3 fL 37 .0-54.0 N PLATELET COUNT (test code = PLT) 295 x10 3/uL 150-400 N IMMATURE PLATELET FRACTION (test code = IPF) 10.4 % 0.9-11.2 N MEAN PLATELET VOLUME (test code = MPV) 12.4 fL 7.0-9.0 H NEUTROPHIL % (test code = NT%) 85.5 % 56.0-77.0 H IMMATURE GRANULOCYTE % (test code = IG%) 1.1 % 0.0-2.0 N LYMPHOCYTE % (test code = LY%) 9.2 % 14.0-32.0 L MONOCYTE % (test code = MO%) 3.4 % 4.8-9.0 L EOSINOPHIL % (test code = EO%) 0.5 % 0.3-3.7 N BASOPHIL % (test code = BA%) 0.3 % 0.0-2.0 N NUCLEATED RBC % (test code = NRBC%) 0.2 % 0-0 H NEUTROPHIL # (test code = NT#) 18.67 x10 3/uL 2.0-7.6 H IMMATURE GRANULOCYTE # (test code = IG#) 0.23 x10 3/uL 0.00-0.03 H LYMPHOCYTE # (test code = LY#) 2.00 x10 3/uL 1.0-3.8 N MONOCYTE # (test code = MO#) 0.75 x10 3/uL 0.1-0.8 N EOSINOPHIL # (test code = EO#) 0.12 x10 3/uL 0.0-0.2 N BASOPHIL # (test code = BA#) 0.06 x10 3/uL 0.0-0.2 N NUCLEATED RBC # (test code = NRBC#) 0.05 x10 3/uL 0.0-0.1 N MANUAL DIFF REQUIRED (test code = MDIFF) NO RBC [id number] 20:07:00* Test Item Value Reference Range Interpretation Comments ANISOCYTOSIS (test code = ANISO) CBC W/AUTO [id number] 20:07:00* Test Item Value Reference Range Interpretation Comments WHITE BLOOD CELL (test code = WBC) 21.83 x10 3/uL 4.5-11.0 H RED BLOOD CELL (test code = RBC) 3.89 x10 6/uL 3.54-5.02 N HEMOGLOBIN (test code = HGB) 8.1 g/dL 11.0-15.0 L HEMATOCRIT (test code = HCT) 26.8 % 33.0-45.0 L MEAN CELL VOLUME (test code = MCV) 68.9 fL 81.0-99.0 L MEAN CELL HGB (test code = MCH) 20.8 pg 27.0-33.0 L MEAN CELL HGB CONCETRATION (test code = MCHC) 30.2 g/dL 33.0-37. 0 L RED CELL DISTRIBUTION WIDTH CV (test code = RDW) 18.0 % 11.5- 14.5 H RED CELL DISTRIBUTION WIDTH SD (test code = RDW-SD) 43.3 fL 37 .0-54.0 N PLATELET COUNT (test code = PLT) 295 x10 3/uL 150-400 N IMMATURE PLATELET FRACTION (test code = IPF) 10.4 % 0.9-11.2 N MEAN PLATELET VOLUME (test code = MPV) 12.4 fL 7.0-9.0 H NEUTROPHIL % (test code = NT%) 85.5 % 56.0-77.0 H IMMATURE GRANULOCYTE % (test code = IG%) 1.1 % 0.0-2.0 N LYMPHOCYTE % (test code = LY%) 9.2 % 14.0-32.0 L MONOCYTE % (test code = MO%) 3.4 % 4.8-9.0 L EOSINOPHIL % (test code = EO%) 0.5 % 0.3-3.7 N BASOPHIL % (test code = BA%) 0.3 % 0.0-2.0 N NUCLEATED RBC % (test code = NRBC%) 0.2 % 0-0 H NEUTROPHIL # (test code = NT#) 18.67 x10 3/uL 2.0-7.6 H IMMATURE GRANULOCYTE # (test code = IG#) 0.23 x10 3/uL 0.00-0.03 H LYMPHOCYTE # (test code = LY#) 2.00 x10 3/uL 1.0-3.8 N MONOCYTE # (test code = MO#) 0.75 x10 3/uL 0.1-0.8 N EOSINOPHIL # (test code = EO#) 0.12 x10 3/uL 0.0-0.2 N BASOPHIL # (test code = BA#) 0.06 x10 3/uL 0.0-0.2 N NUCLEATED RBC # (test code = NRBC#) 0.05 x10 3/uL 0.0-0.1 N MANUAL DIFF REQUIRED (test code = MDIFF) NO RBC [id number] 20:07:00* Test Item Value Reference Range Interpretation Comments ANISOCYTOSIS (test code = ANISO) - DUP VEIN [id number] 18:44:00 Name: ANDREAS SAINI [facility] : 1995 Age/S: 22 / F [address] [place] [address] Unit #: [id number] Loc: [place] [address] Phys: Edwige Medina MD Acct: [id number] Dis Date: Status: ADM IN PHONE #: [phone] Exam Date: 10/27/20181821 FAX #: [phone] Reason: RESP DISTRESS EXAMS: CPT CODE: [id number] DUP VEIN DARLINE 86600 PROCEDURE: BILATERAL LOWER EXTREMITY VENOUS ULTRASOUND INDICATION: Respiratory distress. Recent section. COMPARISON: None. TECHNIQUE: Sonographic evaluation of the bilateral lower extremity veins was performed using high resolution B-mode, pulse and color Doppler imaging. FINDINGS: RIGHT: The common femoral, femoral, popliteal and visualized calf veins are patent. Normal venous waveforms. The saphenofemoral junction is unremarkable. LEFT: The common femoral, femoral, popliteal and visualized calf veins are patent. Normal venous waveforms. The saphenofemoral junction is unremarkable. IMPRESSION: No deep venous thrombosis. SL: [id number] at 1844 Reported and signed by: Aneudy Apple M.D. CC: Edwige Medina MD Technologist: Tanika Gallo RDMS(OB)(AB) Trnscb Date/Time: 10/27/2018 (1843) [email or web address] Orig Print D/T: S: 10/27/2018 (1846) Probe: PAGE 1 Signed Report - CT HEAD/BRAIN W/O [id number] 17:18:00 Name: ANDREAS SAINI [facility] : 1995 Age/S: 22 / F [address] [place] [address] Blvd Unit #: [id number] Loc: [place] [address] Phys: Mere Kapadia MD Acct: [id number] Di s Date: Status: ADM IN PHONE #: Exam Date: 10/27/2018 1640 FAX #: Reason: R/O CVA. new seizure EXAMS: CPT CODE: [id number] CT HEAD/BRAIN W/O CONT [address]175 CT HEAD WITHOUT C ONTRAST INDICATION: New seizure. COMPARISON: No rele vant priors available. TECHNIQUE: Helical CT images obtained from the foramen magnum to the vertex without the use of intravenous contrast o n a multi detector CT. CT imaging performed at this location utilizes radi ation dose optimization techniques which include one or more of the follow ing: -Automated exposure control -Adjustment of the mA and/or kV acc ording to patient size -Use of iterative reconstruction technique CT Radiation Dose DLP 1057.80 mGy-cm FINDINGS: BRAIN PARENCHYMA: There are normal landaverde-white interfaces, sulci and gyri. There are no focal mass lesions on this noncontrast head CT. There is no mass effect, midline shift or edema. There are no intra-axial or extra-axial f luid collections, intraventricular or intraparenchymal hemorrhage. There is however air within the subarachnoid space adjacent to the clivus and al so over the tentorium. The pineal, sellar, brainstem, cerebellar and skul l base regions appear unremarkable. VENTRICLES: The ventricu lar system is normal. Basilar cisterns are normal. ORBITS, MASTOIDS AND PARANASAL SINUSES: The visualized orbits and paranasal sinuse s are unremarkable. The mastoid air cells are clear. SKULL: The b osmani calvarium is intact. IMPRESSION: A ir within the subarachnoid space consistent with recent epidural anesthe isak procedure. Otherwise normal noncontrast head CT with no evidence fo r mass, hemorrhage or subacute stroke. END IMPR ESSION PAGE 1 Signed Report (CONTINUED) Name: ANDREAS SAINI [facility] : 1995 Age/S: 22 / F [address] [place] [address] Unit #: [id number] Loc: [place] [address] Phys: Mere Kapadia MD Acct: [id number] Dis Date: Status: ADM IN PHONE #: [phone] Exam Date: 10/27/2018 1646 FAX #: [phone] Reason: R/O CVA. new seizure EXAMS: CPT CODE: [id number] HEAD/BRAIN W/O CONT 38542 < Continued> WR2-H at 1718 Reported and signed by: Phillip Herman M.D. CC: Edwige Medina MD; Mere Kapadia MD Technologist:RT Shaina(R)(CT) CTDI: DLP: Trnramy Date/Time: 10/27/2018 (1718) B Orig Print D/T: S: 10/27/2018 (1729) CTDI: DLP: PAGE 2 Signed Report - CT ANGIO [id number] 17:12:00 Name: ANDREAS SAINI [facility] : 1995 Age/S: 22 / F [address] [place] [address] Unit #: [id number] Loc: [place] [address] Phys: Mere Kapadia MD Acct: [id number] Di s Date: Status: ADM IN PHONE #: Exam Date: 10/27/2018 0002 FAX #: Reason: R/O PE EXAMS: CPT CODE: [id number] CT ANGIO CHEST 93202 PROCEDURE: CTA CHEST WITH CONTRAST (PE PROTOCOL) INDICATION: 22 years Female, R/O PE. C-s ection. Shortness of breath, acute seizure COMPARISON: Conc urrent chest x-ray TECHNIQUE: Helical thin slice images from the l tianna apices to lung bases are obtained for pulmonary embolism protocol. Ax ial, sagittal and coronal reconstructions are available as well as 3-D MIP images postprocessing on independent workstation. IV contrast: 100 mL of Isovue-300 DOSE: CT imaging performed at this location util izes radiation dose optimization technique which includes one or more of t he followin) Automated exposure control; 2) Adjustment of the mA and/o r kV according to patient's size; 3) Use of iterative reconstruction techniques. DLP (mGy-cm): 1107 FINDINGS: CENTRAL PULMONARY VASCULATURE: Opacifies homogeneously without intraluminal fillin g defects. LOWER NECK: Limited visualization. No abnormality. MEDIASTINUM: Heart and thoracic aorta are within normal limits. No pericardial effusion. No pathologic adenopathy by size criteria. PULMONARY PARENCHYMA: Bibasilar patchy consolidation with air bronchogra ms. To lesser extent, patchy infiltrates of the bilateral upper lobes and right middle lobe. no effusions or pneumothorax. UPPER ABDOMEN: Limited visualization. No abnormality. MUSCULOSKELETAL: No acute o sseous abnormalities or destructive bony lesions. Vertebral body height ar e maintained. OTHER: None. IMPRESSION: 1. Negative for pulmonary embolic disease. 2. Patchy bilateral consolidatio n suggestive of multifocal pneumonia. SL: - PAGE 1 Signed Report (CONTINUED) Name: ANDREAS SAINI [facility] : 1995 Age /S: 22 / F [address] [place] [address] Unit #: [id number] Loc: [place] [address] Phys: Mere Kapadia MD Acct: [id number] Dis Date: Status: ADM IN PHONE #: [phone] Exam Date: 10/27/2018 1645 FAX #: [phone] Reason: R/O PE EXAMS: CPT CODE: [id number] CT ANGIO CHEST 66750 <Continued> at 1712 Reported and signed by: Man Piedra M.D. CC: Edwige Medina MD; Mere Kapadia MD Technologist:Tristin Duval, RT(R)(CT) CTDI: DLP: Trnscb Date/Time: 10/27/2018 (1711) [email or web address] Orig Print D/T: S: 10/27/2018 (1714) CTDI: DLP: PAGE 2 Signed Report - XR CHEST 1 [id number] 17:07:00 FAX: Edwige Mcallister MD [phone] [place]: St: ADM Name: ANDREAS HEART [facility] : [birth year] Age/S: 22/F [address] [place] [address] Unit #: [id number] Loc: [address] [place] [address] Phys: Edwige Medina MD Acct: [id number] Dis Date: Status: ADM IN PHONE #: [phone] Exam Date: 10/27/2018 1703 FAX #: [phone] Reason: STAT R/U PE, RESP DISTRESS EXAMS: CPT CODE: [id number] XR CHEST 1 V 06807 1 VIEW CXR. PORTABLE EXAM 4:55 PM HISTORY: Respiratory distress. Clinical concern for PE. COMPARISON: No relevant priors available.. Cardiac s ilhouette is prominent with a configuration suggesting pericardial fluid. There is diffuse interstitial and airspace opacity bilaterally with pulmo nary vessel prominence. No pleural abnormality. Upper mediastinal contou rs and bony thorax normal. IMPRESSION: CHF. END OF IMPRESSION SL: WR2-H at 1707 Reported and signed by: Phillip Herman M.D. CC: Edwige Medina MD Tech nologist: Christiano Aldridge RT(R) Trnscrd Date/Ti me/By: 10/27/2018 (106) : By: Juany Orig Print D/T: S: 10/27/2018 (9768) PAGE 1 Signed Report [id number] 16:03:00* Test Item Value Reference Range Interpretation Comments GLUBED (test code = GLUBED) 113 MG/DL 70-110 H Performed by certified metal pickling equipment operator at [facility] ARTERIAL BLOOD [id number] 15:56:00* Test Item Value Reference Range Interpretation Comments ARTERIAL BLOOD GAS PH (test code = PHA) 7.359 7.35-7.45 N ARTERIAL BLOOD GAS PCO2 (test code = PCO2A) 32.3 mmHg 35-45 L ARTERIAL BLOOD GAS PO2 (test code = PO2A) 55 mmHg 80-100 L BICARBONATE TOTAL HCO3 (test code = HCO3) 18.3 mmol/L 22.0-26.0 L BASE EXCESS (test code = YVONNE) -7.0 mmol/L -4-4 L ABG O2 SATURATION (test code = SATA) 88 % 90-100 L ABG DELIVERY (test code = JOYCE) Nrb mask ABG TEMPERATURE (test code = TEMPA) 97.8 F ABG SITE (test code = SITEA) R Rad TCO2 ARTERIAL (test code = TCO2A) 19 RAPID PLASMA [id number] 11:15:00* Test Item Value Reference Range Interpretation Comments RAPID PLASMA REAGIN (test code = RPR) NONREACTIVE NONREACTIVE AG HEPATITIS B [id number] 11:15:00* Test Item Value Reference Range Interpretation Comments AG HEPATITIS B SURFACE (test code = HBSAG) NON REACTIVE INDEX NonRe active AB HIV 1 11:15:00* Test Item Value Reference Range Interpretation Comments AB HIV 1 2 (test code = YAM04RY) NONREACTIVE INDEX NONREACTIVE CBC W/AUTO [id number] 08:25:00* Test Item Value Reference Range Interpretation Comments WHITE BLOOD CELL (test code = WBC) 17.87 x10 3/uL 4.5-11.0 H RED BLOOD CELL (test code = RBC) 3.85 x10 6/uL 3.54-5.02 N HEMOGLOBIN (test code = HGB) 7.9 g/dL 11.0-15.0 L HEMATOCRIT (test code = HCT) 26.2 % 33.0-45.0 L MEAN CELL VOLUME (test code = MCV) 68.1 fL 81.0-99.0 L MEAN CELL HGB (test code = MCH) 20.5 pg 27.0-33.0 L MEAN CELL HGB CONCETRATION (test code = MCHC) 30.2 g/dL 33.0-37. 0 L RED CELL DISTRIBUTION WIDTH CV (test code = RDW) 17.3 % 11.5- 14.5 H RED CELL DISTRIBUTION WIDTH SD (test code = RDW-SD) 41.2 fL 37 .0-54.0 N PLATELET COUNT (test code = PLT) 258 x10 3/uL 150-400 N IMMATURE PLATELET FRACTION (test code = IPF) 9.8 % 0.9-11.2 N MEAN PLATELET VOLUME (test code = MPV) 11.5 fL 7.0-9.0 H NEUTROPHIL % (test code = NT%) 86.7 % 56.0-77.0 H IMMATURE GRANULOCYTE % (test code = IG%) 1.3 % 0.0-2.0 N LYMPHOCYTE % (test code = LY%) 7.8 % 14.0-32.0 L MONOCYTE % (test code = MO%) 4.0 % 4.8-9.0 L EOSINOPHIL % (test code = EO%) 0.0 % 0.3-3.7 L BASOPHIL % (test code = BA%) 0.2 % 0.0-2.0 N NUCLEATED RBC % (test code = NRBC%) 0.2 % 0-0 H NEUTROPHIL # (test code = NT#) 15.49 x10 3/uL 2.0-7.6 H IMMATURE GRANULOCYTE # (test code = IG#) 0.24 x10 3/uL 0.00-0.03 H LYMPHOCYTE # (test code = LY#) 1.39 x10 3/uL 1.0-3.8 N MONOCYTE # (test code = MO#) 0.71 x10 3/uL 0.1-0.8 N EOSINOPHIL # (test code = EO#) 0.00 x10 3/uL 0.0-0.2 N BASOPHIL # (test code = BA#) 0.04 x10 3/uL 0.0-0.2 N NUCLEATED RBC # (test code = NRBC#) 0.04 x10 3/uL 0.0-0.1 N MANUAL DIFF REQUIRED (test code = MDIFF) NO RBC [id number] 08:25:00* Test Item Value Reference Range Interpretation Comments POLYCHROMASIA (test code = POLC) 2+ HYPOCHROMIA (test code = HYPO) 2+ ANISOCYTOSIS (test code = ANISO) 1+ MICROCYTOSIS (test code = MICR) 1+ MACROCYTOSIS (test code = MACR) 1+ TARGET CELLS (test code = TGT) FEW [id number] 05:26:00* Test Item Value Reference Range Interpretation Comments MAGNESIUM (test code = MAG) 4.30 mg/dL 1.8-2.4 HH COMMENTS: 6 hours after loading doseCBC W/AUTO [id number] 05:10:00* Test Item Value Reference Range Interpretation Comments WHITE BLOOD CELL (test code = WBC) 17.87 x10 3/uL 4.5-11.0 H RED BLOOD CELL (test code = RBC) 3.85 x10 6/uL 3.54-5.02 N HEMOGLOBIN (test code = HGB) 7.9 g/dL 11.0-15.0 L HEMATOCRIT (test code = HCT) 26.2 % 33.0-45.0 L MEAN CELL VOLUME (test code = MCV) 68.1 fL 81.0-99.0 L MEAN CELL HGB (test code = MCH) 20.5 pg 27.0-33.0 L MEAN CELL HGB CONCETRATION (test code = MCHC) 30.2 g/dL 33.0-37. 0 L RED CELL DISTRIBUTION WIDTH CV (test code = RDW) 17.3 % 11.5- 14.5 H RED CELL DISTRIBUTION WIDTH SD (test code = RDW-SD) 41.2 fL 37 .0-54.0 N PLATELET COUNT (test code = PLT) 258 x10 3/uL 150-400 N IMMATURE PLATELET FRACTION (test code = IPF) 9.8 % 0.9-11.2 N MEAN PLATELET VOLUME (test code = MPV) 11.5 fL 7.0-9.0 H NEUTROPHIL % (test code = NT%) 86.7 % 56.0-77.0 H IMMATURE GRANULOCYTE % (test code = IG%) 1.3 % 0.0-2.0 N LYMPHOCYTE % (test code = LY%) 7.8 % 14.0-32.0 L MONOCYTE % (test code = MO%) 4.0 % 4.8-9.0 L EOSINOPHIL % (test code = EO%) 0.0 % 0.3-3.7 L BASOPHIL % (test code = BA%) 0.2 % 0.0-2.0 N NUCLEATED RBC % (test code = NRBC%) 0.2 % 0-0 H NEUTROPHIL # (test code = NT#) 15.49 x10 3/uL 2.0-7.6 H IMMATURE GRANULOCYTE # (test code = IG#) 0.24 x10 3/uL 0.00-0.03 H LYMPHOCYTE # (test code = LY#) 1.39 x10 3/uL 1.0-3.8 N MONOCYTE # (test code = MO#) 0.71 x10 3/uL 0.1-0.8 N EOSINOPHIL # (test code = EO#) 0.00 x10 3/uL 0.0-0.2 N BASOPHIL # (test code = BA#) 0.04 x10 3/uL 0.0-0.2 N NUCLEATED RBC # (test code = NRBC#) 0.04 x10 3/uL 0.0-0.1 N MANUAL DIFF REQUIRED (test code = MDIFF) NO RBC [id number] 05:10:00* Test Item Value Reference Range Interpretation Comments ANISOCYTOSIS (test code = ANISO) CBC W/AUTO [id number] 05:10:00* Test Item Value Reference Range Interpretation Comments WHITE BLOOD CELL (test code = WBC) 17.87 x10 3/uL 4.5-11.0 H RED BLOOD CELL (test code = RBC) 3.85 x10 6/uL 3.54-5.02 N HEMOGLOBIN (test code = HGB) 7.9 g/dL 11.0-15.0 L HEMATOCRIT (test code = HCT) 26.2 % 33.0-45.0 L MEAN CELL VOLUME (test code = MCV) 68.1 fL 81.0-99.0 L MEAN CELL HGB (test code = MCH) 20.5 pg 27.0-33.0 L MEAN CELL HGB CONCETRATION (test code = MCHC) 30.2 g/dL 33.0-37. 0 L RED CELL DISTRIBUTION WIDTH CV (test code = RDW) 17.3 % 11.5- 14.5 H RED CELL DISTRIBUTION WIDTH SD (test code = RDW-SD) 41.2 fL 37 .0-54.0 N PLATELET COUNT (test code = PLT) 258 x10 3/uL 150-400 N IMMATURE PLATELET FRACTION (test code = IPF) 9.8 % 0.9-11.2 N MEAN PLATELET VOLUME (test code = MPV) 11.5 fL 7.0-9.0 H NEUTROPHIL % (test code = NT%) 86.7 % 56.0-77.0 H IMMATURE GRANULOCYTE % (test code = IG%) 1.3 % 0.0-2.0 N LYMPHOCYTE % (test code = LY%) 7.8 % 14.0-32.0 L MONOCYTE % (test code = MO%) 4.0 % 4.8-9.0 L EOSINOPHIL % (test code = EO%) 0.0 % 0.3-3.7 L BASOPHIL % (test code = BA%) 0.2 % 0.0-2.0 N NUCLEATED RBC % (test code = NRBC%) 0.2 % 0-0 H NEUTROPHIL # (test code = NT#) 15.49 x10 3/uL 2.0-7.6 H IMMATURE GRANULOCYTE # (test code = IG#) 0.24 x10 3/uL 0.00-0.03 H LYMPHOCYTE # (test code = LY#) 1.39 x10 3/uL 1.0-3.8 N MONOCYTE # (test code = MO#) 0.71 x10 3/uL 0.1-0.8 N EOSINOPHIL # (test code = EO#) 0.00 x10 3/uL 0.0-0.2 N BASOPHIL # (test code = BA#) 0.04 x10 3/uL 0.0-0.2 N NUCLEATED RBC # (test code = NRBC#) 0.04 x10 3/uL 0.0-0.1 N MANUAL DIFF REQUIRED (test code = MDIFF) NO RBC [id number] 05:10:00* Test Item Value Reference Range Interpretation Comments ANISOCYTOSIS (test code = ANISO) RAPID PLASMA [id number] 01:56:00* Test Item Value Reference Range Interpretation Comments RAPID PLASMA REAGIN (test code = RPR) NONREACTIVE AG HEPATITIS B [id number] 01:56:00* Test Item Value Reference Range Interpretation Comments AG HEPATITIS B SURFACE (test code = HBSAG) NON REACTIVE INDEX NonRe active AB HIV 1 01:56:00* Test Item Value Reference Range Interpretation Comments AB HIV 1 2 (test code = HOF40BP) NONREACTIVE INDEX NONREACTIVE RAPID PLASMA [id number] 20:14:00* Test Item Value Reference Range Interpretation Comments RAPID PLASMA REAGIN (test code = RPR) NONREACTIVE AG HEPATITIS B [id number] 20:14:00* Test Item Value Reference Range Interpretation Comments AG HEPATITIS B SURFACE (test code = HBSAG) NON REACTIVE INDEX NonRe active AB HIV 1 20:14:00* Test Item Value Reference Range Interpretation Comments AB HIV 1 2 (test code = SNL17FA) INDEX NONREACTIVE CBC W/AUTO [id number] 18:23:00* Test Item Value Reference Range Interpretation Comments WHITE BLOOD CELL (test code = WBC) 12.92 x10 3/uL 4.5-11.0 H RED BLOOD CELL (test code = RBC) 3.87 x10 6/uL 3.54-5.02 N HEMOGLOBIN (test code = HGB) 7.9 g/dL 11.0-15.0 L HEMATOCRIT (test code = HCT) 26.7 % 33.0-45.0 L MEAN CELL VOLUME (test code = MCV) 69.0 fL 81.0-99.0 L MEAN CELL HGB (test code = MCH) 20.4 pg 27.0-33.0 L MEAN CELL HGB CONCETRATION (test code = MCHC) 29.6 g/dL 33.0-37. 0 L RED CELL DISTRIBUTION WIDTH CV (test code = RDW) 17.5 % 11.5- 14.5 H RED CELL DISTRIBUTION WIDTH SD (test code = RDW-SD) 42.3 fL 37 .0-54.0 N PLATELET COUNT (test code = PLT) 268 x10 3/uL 150-400 N IMMATURE PLATELET FRACTION (test code = IPF) 10.3 % 0.9-11.2 N MEAN PLATELET VOLUME (test code = MPV) 12.2 fL 7.0-9.0 H NEUTROPHIL % (test code = NT%) 76.1 % 56.0-77.0 N IMMATURE GRANULOCYTE % (test code = IG%) 1.5 % 0.0-2.0 N LYMPHOCYTE % (test code = LY%) 14.9 % 14.0-32.0 N MONOCYTE % (test code = MO%) 6.7 % 4.8-9.0 N EOSINOPHIL % (test code = EO%) 0.5 % 0.3-3.7 N BASOPHIL % (test code = BA%) 0.3 % 0.0-2.0 N NUCLEATED RBC % (test code = NRBC%) 0.3 % 0-0 H NEUTROPHIL # (test code = NT#) 9.83 x10 3/uL 2.0-7.6 H IMMATURE GRANULOCYTE # (test code = IG#) 0.20 x10 3/uL 0.00-0.03 H LYMPHOCYTE # (test code = LY#) 1.92 x10 3/uL 1.0-3.8 N MONOCYTE # (test code = MO#) 0.87 x10 3/uL 0.1-0.8 H EOSINOPHIL # (test code = EO#) 0.06 x10 3/uL 0.0-0.2 N BASOPHIL # (test code = BA#) 0.04 x10 3/uL 0.0-0.2 N NUCLEATED RBC # (test code = NRBC#) 0.04 x10 3/uL 0.0-0.1 N MANUAL DIFF REQUIRED (test code = MDIFF) NO RBC [id number] 18:23:00* Test Item Value Reference Range Interpretation Comments POLYCHROMASIA (test code = POLC) 1+ POIKILOCYTOSIS (test code = POIK) SLIGHT ANISOCYTOSIS (test code = ANISO) 1+ MICROCYTOSIS (test code = MICR) 1+ ELLIPTOCYTES (test code = ELL) RARE URINALYSIS [id number] 18:22:00* Test Item Value Reference Range Interpretation Comments UA COLOR (test code = COLU) YELLOW YEL/STRAW UA APPEARANCE (test code = APPU) CLOUDY CLEAR A UA GLUCOSE DIPSTICK (test code = DGLUU) NEGATIVE NEGATIVE UA BILIRUBIN DIPSTICK (test code = BILU) NEGATIVE NEGATIVE UA KETONE DIPSTICK (test code = KETU) TRACE NEGATIVE A UA SPECIFIC GRAVITY (test code = SGU) 1.029 1.005-1.030 N UA BLOOD DIPSTICK (test code = SHERYL) NEGATIVE NEGATIVE UA PH DIPSTICK (test code = MORIS) 5.0 5.0-7.0 N UA PROTEIN DIPSTICK (test code = PROU) 2+ NEGATIVE A UA UROBILINIOGEN DIPSTICK (test code = URO) 2.0 mg/dL 0.2-1.0 A UA NITRITE DIPSTICK (test code = LUIS CARLOS) NEGATIVE NEGATIVE UA LEUKOCYTE ESTERASE DIPSTICK (test code = LEUU) TRACE NEGA TIVE A UA WBC (test code = WBCU) 4-9 WBC/HPF 0-3 A UA RBC (test code = RBCU) 11-20 RBC/HPF 0-3 UA BACTERIA (test code = BACU) 2+ /HPF NONE SEEN A UA SQUAMOUS CELLS (test code = SQU) 11-25 /HPF NONE SEEN A UA MUCUS (test code = MUCU) 4+ /LPF NONE SEEN A COMPREHENSIVE METABOLIC [id number] 17:56:00* Test Item Value Reference Range Interpretation Comments SODIUM (test code = NA) 139 mEq/L 134-147 N POTASSIUM (test code = K) 4.1 mEq/L 3.4-5.0 N CHLORIDE (test code = CL) 111 mEq/L 100-108 H CARBON DIOXIDE (test code = CO2) 22 mEq/L 21-33 N ANION GAP (test code = GAP) 10 0-20 N GLUCOSE (test code = GLU) 72 mg/dL 70-110 N BLOOD UREA NITROGEN (test code = BUN) 11 mg/dL 7-18 N GLOMERULAR FILTRATION RATE (test code = GFR) 103.7 110-120 L Units of measure = ml/min/1.73 m2 CREATININE (test code = CREAT) 0.7 mg/dL 0.6-1.3 N TOTAL PROTEIN (test code = PROT) 6.7 g/dL 6.4-8.2 N ALBUMIN (test code = ALB) 2.40 g/dL 3.4-5.0 L CALCIUM (test code = CA) 8.8 mg/dL 8.0-10.5 N BILIRUBIN TOTAL (test code = BILT) 0.20 mg/dL 0.0-1.0 N SGOT/AST (test code = AST) 16 IUnit/L 15-37 N SGPT/ALT (test code = ALT) 13 IUnit/L 15-65 L ALKALINE PHOSPHATASE TOTAL (test code = ALKP) 154 IUnit/L 20-125 H URIC [id number] 17:56:00* Test Item Value Reference Range Interpretation Comments URIC ACID (test code = URIC) 4.6 mg/dL 2.6-7.2 N LACTIC DEHYDROGENASE(LDH)2018-10-25 17:56:00* Test Item Value Reference Range Interpretation Comments LACTIC DEHYDROGENASE(LDH) (test code = LDH) 190 IUnits/L 84-246 N COMPREHENSIVE METABOLIC [id number] 17:48:00* Test Item Value Reference Range Interpretation Comments SODIUM (test code = NA) 139 mEq/L 134-147 N POTASSIUM (test code = K) 4.1 mEq/L 3.4-5.0 N CHLORIDE (test code = CL) 111 mEq/L 100-108 H CARBON DIOXIDE (test code = CO2) 22 mEq/L 21-33 N ANION GAP (test code = GAP) 10 0-20 N GLUCOSE (test code = GLU) 72 mg/dL 70-110 N BLOOD UREA NITROGEN (test code = BUN) 11 mg/dL 7-18 N GLOMERULAR FILTRATION RATE (test code = GFR) 103.7 110-120 L Units of measure = ml/min/1.73 m2 CREATININE (test code = CREAT) 0.7 mg/dL 0.6-1.3 N TOTAL PROTEIN (test code = PROT) g/dL 6.4-8.2 ALBUMIN (test code = ALB) 2.40 g/dL 3.4-5.0 L CALCIUM (test code = CA) 8.8 mg/dL 8.0-10.5 N BILIRUBIN TOTAL (test code = BILT) mg/dL 0.0-1.0 SGOT/AST (test code = AST) 16 IUnit/L 15-37 N SGPT/ALT (test code = ALT) 13 IUnit/L 15-65 L ALKALINE PHOSPHATASE TOTAL (test code = ALKP) IUnit/L 20-125 URIC [id number] 17:48:00* Test Item Value Reference Range Interpretation Comments URIC ACID (test code = URIC) mg/dL 2.6-7.2 LACTIC DEHYDROGENASE(LDH)2018-10-25 17:48:00* Test Item Value Reference Range Interpretation Comments LACTIC DEHYDROGENASE(LDH) (test code = LDH) IUnits/L 84-246 CBC W/AUTO [id number] 17:40:00* Test Item Value Reference Range Interpretation Comments WHITE BLOOD CELL (test code = WBC) 12.92 x10 3/uL 4.5-11.0 H RED BLOOD CELL (test code = RBC) 3.87 x10 6/uL 3.54-5.02 N HEMOGLOBIN (test code = HGB) 7.9 g/dL 11.0-15.0 L HEMATOCRIT (test code = HCT) 26.7 % 33.0-45.0 L MEAN CELL VOLUME (test code = MCV) 69.0 fL 81.0-99.0 L MEAN CELL HGB (test code = MCH) 20.4 pg 27.0-33.0 L MEAN CELL HGB CONCETRATION (test code = MCHC) 29.6 g/dL 33.0-37. 0 L RED CELL DISTRIBUTION WIDTH CV (test code = RDW) 17.5 % 11.5- 14.5 H RED CELL DISTRIBUTION WIDTH SD (test code = RDW-SD) 42.3 fL 37 .0-54.0 N PLATELET COUNT (test code = PLT) 268 x10 3/uL 150-400 N IMMATURE PLATELET FRACTION (test code = IPF) 10.3 % 0.9-11.2 N MEAN PLATELET VOLUME (test code = MPV) 12.2 fL 7.0-9.0 H NEUTROPHIL % (test code = NT%) 76.1 % 56.0-77.0 N IMMATURE GRANULOCYTE % (test code = IG%) 1.5 % 0.0-2.0 N LYMPHOCYTE % (test code = LY%) 14.9 % 14.0-32.0 N MONOCYTE % (test code = MO%) 6.7 % 4.8-9.0 N EOSINOPHIL % (test code = EO%) 0.5 % 0.3-3.7 N BASOPHIL % (test code = BA%) 0.3 % 0.0-2.0 N NUCLEATED RBC % (test code = NRBC%) 0.3 % 0-0 H NEUTROPHIL # (test code = NT#) 9.83 x10 3/uL 2.0-7.6 H IMMATURE GRANULOCYTE # (test code = IG#) 0.20 x10 3/uL 0.00-0.03 H LYMPHOCYTE # (test code = LY#) 1.92 x10 3/uL 1.0-3.8 N MONOCYTE # (test code = MO#) 0.87 x10 3/uL 0.1-0.8 H EOSINOPHIL # (test code = EO#) 0.06 x10 3/uL 0.0-0.2 N BASOPHIL # (test code = BA#) 0.04 x10 3/uL 0.0-0.2 N NUCLEATED RBC # (test code = NRBC#) 0.04 x10 3/uL 0.0-0.1 N MANUAL DIFF REQUIRED (test code = MDIFF) NO RBC [id number] 17:40:00* Test Item Value Reference Range Interpretation Comments ANISOCYTOSIS (test code = ANISO) CBC W/AUTO [id number] 17:40:00* Test Item Value Reference Range Interpretation Comments WHITE BLOOD CELL (test code = WBC) 12.92 x10 3/uL 4.5-11.0 H RED BLOOD CELL (test code = RBC) 3.87 x10 6/uL 3.54-5.02 N HEMOGLOBIN (test code = HGB) 7.9 g/dL 11.0-15.0 L HEMATOCRIT (test code = HCT) 26.7 % 33.0-45.0 L MEAN CELL VOLUME (test code = MCV) 69.0 fL 81.0-99.0 L MEAN CELL HGB (test code = MCH) 20.4 pg 27.0-33.0 L MEAN CELL HGB CONCETRATION (test code = MCHC) 29.6 g/dL 33.0-37. 0 L RED CELL DISTRIBUTION WIDTH CV (test code = RDW) 17.5 % 11.5- 14.5 H RED CELL DISTRIBUTION WIDTH SD (test code = RDW-SD) 42.3 fL 37 .0-54.0 N PLATELET COUNT (test code = PLT) 268 x10 3/uL 150-400 N IMMATURE PLATELET FRACTION (test code = IPF) 10.3 % 0.9-11.2 N MEAN PLATELET VOLUME (test code = MPV) 12.2 fL 7.0-9.0 H NEUTROPHIL % (test code = NT%) 76.1 % 56.0-77.0 N IMMATURE GRANULOCYTE % (test code = IG%) 1.5 % 0.0-2.0 N LYMPHOCYTE % (test code = LY%) 14.9 % 14.0-32.0 N MONOCYTE % (test code = MO%) 6.7 % 4.8-9.0 N EOSINOPHIL % (test code = EO%) 0.5 % 0.3-3.7 N BASOPHIL % (test code = BA%) 0.3 % 0.0-2.0 N NUCLEATED RBC % (test code = NRBC%) 0.3 % 0-0 H NEUTROPHIL # (test code = NT#) 9.83 x10 3/uL 2.0-7.6 H IMMATURE GRANULOCYTE # (test code = IG#) 0.20 x10 3/uL 0.00-0.03 H LYMPHOCYTE # (test code = LY#) 1.92 x10 3/uL 1.0-3.8 N MONOCYTE # (test code = MO#) 0.87 x10 3/uL 0.1-0.8 H EOSINOPHIL # (test code = EO#) 0.06 x10 3/uL 0.0-0.2 N BASOPHIL # (test code = BA#) 0.04 x10 3/uL 0.0-0.2 N NUCLEATED RBC # (test code = NRBC#) 0.04 x10 3/uL 0.0-0.1 N MANUAL DIFF REQUIRED (test code = MDIFF) NO RBC [id number] 17:40:00* Test Item Value Reference Range Interpretation Comments ANISOCYTOSIS (test code = ANISO) - US PREG AFTER [id number] 07:21:00 Name: ANDREAS SAINI [facility] : 1995 Age/S: 22 / F [address] [facility] [address] Unit #: [id number] Loc: [place] [address] Phys: Grayson Wiggins MD Acct: [id number] Dis Date: Status: REG ER PHONE #: [phone] Exam Date: 09/05/2018 0554 FAX #: [phone] Reason: abdominal pain-LUQ EXAMS: CPT CODE: [id number] US PREG AFTER TRI 20530 EXAM: US, US PREG AFTER TRI: 09/05/2018 History: Elevated blood pressure. Abdominal pain, left upper quadrant. 31 weeks Comparison: None Technique: Sonographic evaluation is performed of the pelvis using grayscale, color flow and Doppler imaging as appropriate. FINDINGS: Single live intrauterine gestation is identified at 32 weeks 4 days in breech presentation. heart beat is 1 28 bpm. Sonographic MARY BETH is 10/27/2018. Placenta is anterior, grade 1. No evidence of placenta previa. Amniotic fluid index is 10.29 cm. Limited evaluation of the head, four-chamber view of the heart, spine, extremity and three-vessel cord is unremarkable. Suspect nuchal cord. BPD: 8.24 cm = 33 weeks 1 day HC: 30.30 cm = 33 weeks 5 days AC: 28 .22 cm = 32 weeks 2 days FL: 6.07 cm = 31 weeks 4 days EFW: 1934 g +/- 290.17 g EFW %: 75.4 FL/AC: 21.49 FL/HC: 20 .02 FL/BPD: 73.62 HC/AC: 1.07 Very limited exam due to patient's body habitus. Impression: 1. Single live int rauterine gestation in breech presentation. Positive heart beat a t 128 bpm. 2. Nuchal cord SL:JSYED-H PAGE 1 Signed Report (CONTINUED) Name: ANDREAS NO [facility] : 1995 A ge/S: 22 / F [address] [place] [address] Unit #: [id number] Loc : [place] [address] Phys: Grayson Wiggins MD Acct: [id number] Dis Date: Status: REG ER PHONE #: [phone] Exam Date: 09/05/201854 FAX #: [phone] Reason: abdominal pain-LUQ EXAMS: CPT CODE: [id number] US PREG AFTER TRI 46212 <Continued> at 0721 Reported and signed by: Pedro Nash M.D. CC: Edwige Medina MD; Grayson Wiggins MD Technologist: Rebecca Mancilla RDMS(Tori) Trnnyb Date/Time: 09/05/2018 (720) t.SDR.JS38 Orig Print D/T: S: 09/05/2018 (0724) Probe: PAGE 2 Signed Report - US ABDOMEN [id number] 06:46:00 Name: ANDREAS SAINI [facility] : 1995 Age/S: 22 / [address] [place] [address] Unit #: [id number] Loc: [place] [address] Phys: Grayson Wiggins MD Acct: [id number] Dis Date: Status: REG ER PHONE #: [phone] Exam Date: 09/05/2018513 FAX #: [phone] Reason: Left upper and lower abdominal pain EXAMS: CPT CODE: [id number] US ABDOMEN LTD 73564 EXAM: US, US ABDOMEN LTD: 09/05/2018 HISTORY: Left upper and lower abdominal pain TECHNIQUE: Sonographic evaluation is performed using grayscale, color flow and Doppler imaging as appropriate. COMPARISON: CT scan dated 11/14/2014. FINDINGS: The liver shows increasedparenchymal echogenicity. There is no evidence of dilated intrahepatic biliary ducts. Common bile duct measures 3.6 mm. The gallbladder is physiologically distended with normal wall thickness. No evidence of cholelithiasis or pericholecystic fluid collection is seen. Sonographic Bhardwaj sign is negative. The right kidney measures 12.1 cm. Left kidney measures 13.1 cm There is no evidence of hydronephrosis. The visualized pancreas and visualized spleen is unremarkable. Spleen measures 12.1 cm Visualized portal vein is patent. Limited due to patient body habitus. IMPRESSION: 1. Hepatic steatosis. 2. Otherwise unremarkable abdominal ultrasound. SL; [JSYED-H] at 0646 Reported and signed by: Pedro Nash M.D. CC: Edwige Medina MD; Grayson Wiggins MD Technologist: eRbecca Mancilla RDMS(A) Trnscb Date/Time: 09/05/2018 (0646) [email or web address] Orig Print D/T: S: 09/05/2018 (0649) Probe: PAGE 1 Signed Report [id number] 04:38:00* Test Item Value Reference Range Interpretation Comments AMYLASE (test code = ALEXIS) 58 UNITS/L 25-115 N [id number] 04:38:00* Test Item Value Reference Range Interpretation Comments LIPASE (test code = LIP) 86 IUnit/L 73-393 N Sodium Eqaae2234-46-56 01:19:00* Test Item Value Reference Range Interpretation Comments Sodium Level (test code = 2951-2) 137 136-145 [facility] Uzbrh8571-56-26 01:19:00* Test Item Value Reference Range Interpretation Comments Potassium Level (test code = 2823-3) 4.2 3.5-5.1 [facility] HospitalChloride Fybuo0780-39-30 01:19:00* Test Item Value Reference Range Interpretation Comments Chloride Level (test code = 2075-0) 106 98-107 [facility] HospitalCarbon Dioxide Eclmw6263-00-83 01:19:00* Test Item Value Reference Range Interpretation Comments Carbon Dioxide Level (test code = 2028-9) 18 22-29 L [facility] HospitalAnion [id number] 01:19:00* Test Item Value Reference Range Interpretation Comments Anion Gap (test code = 14929-8) 17.2 8-16 H [facility] HospitalBlood Urea Zhfdludt6584-91-83 01:19:00* Test Item Value Reference Range Interpretation Comments Blood Urea Nitrogen (test code = 3094-0) 9 7-26 [facility] HospitalCreatinine2019-02-17 01:19:00* Test Item Value Reference Range Interpretation Comments Creatinine (test code = 2160-0) 0.65 0.57-1.11 [facility] HospitalBUN/Creatinine Uddse9400-59-67 01:19:00* Test Item Value Reference Range Interpretation Comments BUN/Creatinine Ratio (test code = 3097-3) 14 6-25 [facility] HospitalEstimat Glomerular Filtration Rate 2018-09-05 01:19:00* Test Item Value Reference Range Interpretation Comments Estimat Glomerular Filtration Rate (test code = 322661232) > 60 >60 Ranges were taken from the National Kidney Disease Education Program and the [facility] [employer] literature.Reference ranges:60 or greater: Sjvuvc72-17 ( for 3 consecutive months): Chronic kidney disease 15 or less: Kidney failureRolling Plains [facility] HospitalGlucose Hcogb2174-89-08 01:19:00* Test Item Value Reference Range Interpretation Comments Glucose Level (test code = AEH1279) 93 74-118 [facility] HospitalCalcium Zxyfl0622-80-02 01:19:00* Test Item Value Reference Range Interpretation Comments Calcium Level (test code = 19465-0) 9.6 8.4-10.2 [facility] HospitalTotal Rvqphpjoo5486-20-83 01:19:00* Test Item Value Reference Range Interpretation Comments Total Bilirubin (test code = 1975-2) 0.2 0.2-1.2 [facility] HospitalAspartate Amino Transf (AST/SGOT) 2018-09-05 01:19:00* Test Item Value Reference Range Interpretation Comments Aspartate Amino Transf (AST/SGOT) (test code = Aspartate Amino Transf (AST/SGOT)) 16 5-34 [facility] HospitalAlanine Aminotransferase (ALT/SGPT) 2018-09-05 01:19:00* Test Item Value Reference Range Interpretation Comments Alanine Aminotransferase (ALT/SGPT) (test code = 1742-6) 9 0-55 [facility] HospitalTotal Tvfburf0181-63-96 01:19:00* Test Item Value Reference Range Interpretation Comments Total Protein (test code = 2885-2) 7.5 6.5-8.1 [facility] HospitalAlbumin2019-02-17 01:19:00* Test Item Value Reference Range Interpretation Comments Albumin (test code = 1751-7) 2.7 3.5-5.0 L [facility] HospitalGlobulin2019-02-17 01:19:00* Test Item Value Reference Range Interpretation Comments Globulin (test code = 62946-3) 4.8 2.3-3.5 H [facility] HospitalAlbumin/Globulin Wmgae7254-15-70 01:19:00 * Test Item Value Reference Range Interpretation Comments Albumin/Globulin Ratio (test code = 1759-0) 0.6 0.8-2.0 L [facility] HospitalAlkaline Galipzpvldi2456-87-90 01:19:00* Test Item Value Reference Range Interpretation Comments Alkaline Phosphatase (test code = 6768-6) 124 40-150 [facility] HospitalLipase2019-02-17 01:19:00* Test Item Value Reference Range Interpretation Comments Lipase (test code = 3040-3) 17 8-78 [facility] HospitalUrine Hgjgn4897-77-79 01:05:00* Test Item Value Reference Range Interpretation Comments Urine Color (test code = 5778-6) YELLOW YELLOW [facility] HospitalU[facility] Ncdemfl7155-79-80 01:05:00* Test Item Value Reference Range Interpretation Comments Urine Clarity (test code = 10085-5) CLEAR CLEAR [facility] HospitalUrine Specific Bckurhh4988-02-24 01:05:00 * Test Item Value Reference Range Interpretation Comments Urine Specific [place] (test code = 5811-5) 1.025 1.010-1.02 5 [facility] HospitalU[facility] [id number] 01:05:00* Test Item Value Reference Range Interpretation Comments Urine pH (test code = 67566-1) 6.5 5-7 [facility] Leukocyte Gwgfloha3061-88-07 01:05:00* Test Item Value Reference Range Interpretation Comments Urine Leukocyte Esterase (test code = 5799-2) NEGATIVE NEGATIVE [facility] HospitalU[facility] Mhbrhux7375-09-00 01:05:00* Test Item Value Reference Range Interpretation Comments Urine Nitrite (test code = 67182-5) NEGATIVE NEGATIVE [facility] HospitalU[facility] Eseerlu1736-98-48 01:05:00* Test Item Value Reference Range Interpretation Comments Urine Protein (test code = 5804-0) TRACE NEGATIVE H [facility] HospitalUrine Glucose (UA)2018-09-05 01:05:00* Test Item Value Reference Range Interpretation Comments Urine Glucose (UA) (test code = 2349-9) NEGATIVE NEGATIVE [facility] Guihrvk3071-59-69 01:05:00* Test Item Value Reference Range Interpretation Comments Urine Ketones (test code = 37817-2) NEGATIVE NEGATIVE [facility] Znrkdvxhvlaa0002-13-79 01:05:00* Test Item Value Reference Range Interpretation Comments Urine Urobilinogen (test code = 77969-8) 0.2 0.2-1 [facility] HospitalU[facility] Wigfhhgqp5747-41-65 01:05:00* Test Item Value Reference Range Interpretation Comments Urine Bilirubin (test code = 1978-6) NEGATIVE NEGATIVE [facility] HospitalU[facility] Djwst4214-28-61 01:05:00* Test Item Value Reference Range Interpretation Comments Urine Blood (test code = 86892-9) NEGATIVE NEGATIVE [facility] HospitalU[facility] IGY8473-86-84 01:05:00* Test Item Value Reference Range Interpretation Comments Urine WBC (test code = 5821-4) 0-5 0-5 [facility] HospitalU[facility] MSR2161-03-76 01:05:00* Test Item Value Reference Range Interpretation Comments Urine RBC (test code = 43724-5) 0-5 0-5 [facility] HospitalU[facility] Vlyzxrlp1956-68-56 01:05:00* Test Item Value Reference Range Interpretation Comments Urine Bacteria (test code = 61141-7) MANY NONE H [facility] HospitalUrine Epithelial Uaclz9017-23-66 01:05:00 * Test Item Value Reference Range Interpretation Comments Urine Epithelial Cells (test code = 41093-2) MANY NONE [facility] HospitalWhite Blood Zvnls1935-74-88 00:54:00* Test Item Value Reference Range Interpretation Comments White Blood Count (test code = 6690-2) 14.43 4.8-10.8 H [facility] HospitalRed Blood Vojxw6440-44-16 00:54:00* Test Item Value Reference Range Interpretation Comments Red Blood Count (test code = 789-8) 4.15 3.6-5.1 [facility] HospitalHemoglobin2019-02-17 00:54:00* Test Item Value Reference Range Interpretation Comments Hemoglobin (test code = 04620-6) 9.1 12.0-16.0 L [facility] HospitalHematocrit2019-02-17 00:54:00* Test Item Value Reference Range Interpretation Comments Hematocrit (test code = 4544-3) 29.0 34.2-44.1 L [facility] HospitalMean Corpuscular Cwoisb6558-45-63 00:54:00* Test Item Value Reference Range Interpretation Comments Mean Corpuscular Volume (test code = 787-2) 69.9 81-99 L [facility] HospitalMean Corpuscular Wwwjimkfon6543-88-64 00:54:00* Test Item Value Reference Range Interpretation Comments Mean Corpuscular Hemoglobin (test code = 785-6) 21.9 28-32 L [facility] HospitalMean Corpuscular Hemoglobin Concent 2018-09-05 00:54:00* Test Item Value Reference Range Interpretation Comments Mean Corpuscular Hemoglobin Concent (test code = 786-4) 31.4 31-35 [facility] HospitalRed Cell Distribution Laihn3742-55-38 00:54:00* Test Item Value Reference Range Interpretation Comments Red Cell Distribution Width (test code = 66737-3) 16.0 11.7 -14.4 H [facility] HospitalPlatelet Wlrpt4978-35-65 00:54:00* Test Item Value Reference Range Interpretation Comments Platelet Count (test code = 777-3) 316 140-360 [facility] HospitalNeutrophils (%) (Auto)2018-09-05 00:54:00 * Test Item Value Reference Range Interpretation Comments Neutrophils (%) (Auto) (test code = 17285-1) 73.3 38.7-80.0 [facility] HospitalLymphocytes (%) (Auto)2018-09-05 00:54:00 * Test Item Value Reference Range Interpretation Comments Lymphocytes (%) (Auto) (test code = 736-9) 18.2 18.0-39.1 [facility] HospitalMonocytes (%) (Auto)2018-09-05 00:54:00* Test Item Value Reference Range Interpretation Comments Monocytes (%) (Auto) (test code = 5905-5) 6.5 4.4-11.3 [facility] HospitalEosinophils (%) (Auto)2018-09-05 00:54:00 * Test Item Value Reference Range Interpretation Comments Eosinophils (%) (Auto) (test code = 713-8) 0.7 0.0-6.0 [facility] HospitalBasophils (%) (Auto)2018-09-05 00:54:00* Test Item Value Reference Range Interpretation Comments Basophils (%) (Auto) (test code = 706-2) 0.3 0.0-1.0 [facility] HospitalIM GRANULOCYTES %2018-09-05 00:54:00* Test Item Value Reference Range Interpretation Comments IM GRANULOCYTES % (test code = IM GRANULOCYTES %) 1.0 0.0- 1.0 [facility] HospitalNeutrophils # (Auto)2018-09-05 00:54:00* Test Item Value Reference Range Interpretation Comments Neutrophils # (Auto) (test code = 751-8) 10.6 2.1-6.9 H [facility] HospitalLymphocytes # (Auto)2018-09-05 00:54:00* Test Item Value Reference Range Interpretation Comments Lymphocytes # (Auto) (test code = 57421-7) 2.6 1.0-3.2 [facility] HospitalMonocytes # (Auto)2018-09-05 00:54:00* Test Item Value Reference Range Interpretation Comments Monocytes # (Auto) (test code = 742-7) 0.9 0.2-0.8 H [facility] HospitalEosinophils # (Auto)2018-09-05 00:54:00* Test Item Value Reference Range Interpretation Comments Eosinophils # (Auto) (test code = 711-2) 0.1 0.0-0.4 [facility] HospitalBasophils # (Auto)2018-09-05 00:54:00* Test Item Value Reference Range Interpretation Comments Basophils # (Auto) (test code = 704-7) 0.1 0.0-0.1 [facility] HospitalAbsolute Immature Granulocyte (auto 2018-09-05 00:54:00* Test Item Value Reference Range Interpretation Comments Absolute Immature Granulocyte (auto (kasandra t code = Absolute Immature Granulocyte (auto) 0.15 0-0.1 H [facility]
--- NOTE | 2019-12-18 16:16 | Emergency Department Note ---
History of Present Illnes History of Present Illness Chief Complaint: General Medicine Complaints History of Present Illness This is a 23 year old female .c/o fevr cough sore throat x 3 days HERE FOR SORE THROAT AND INTERMITTENT COUGH WITH TEMP OF 100.2 AT HOME, 11 WEEKS . DENIES NAUSEA, VOMITING, DIARRHEA, NO SHORTNESS OF BREATH, NO COUGH IN THE LAST 3 DAYS. Historian: Patient Arrival Mode: Car Onset (how long ago): day(s) (3 days) Location: throat Quality: minimal Radiation: non-radiation, back, neck, extremity, abdomen, periumbilical, flank, proximal, distal, other Severity: mild Onset quality: gradual Duration (how long): day(s) (3 days) Progression: unchanged Context: recent illness, recent surgery, recent immobilization, recent travel, trauma/injury, new medications, hx of DVT/PE, non-compliance w/ medications, other Relieving factors: none Exacerbating factors: none Treatments prior to arrival: none (PORTILLO COBURN NP) Past Medical/Family History Physician Review I have reviewed the patient's past medical and family history. Any updates have been documented here. (PORTILLO COBURN NP) Past Medical History Recent Fever: No Clinical Suspicion of Infectio: No New/Unexplained Change in Ment: No Past Medical History: None Past Surgical History: None, (PORTILLO COBURN NP) Social History Smoking Cessation: Never Smoker Counseling Performed: No Alcohol Use: None Any Illegal Drug Use: No TB Exposure/Symptoms: No Physically hurt or threatened: No (PORTILLO COBURN NP) Other Last Tetanus: UTD Any Pre-Existing Lines (PICC,: No Is patient up to date on immun: No Last Flu: UTD Last Pneumovax: UTD (PORTILLO COBURN NP) Review of Systems Review of Systems Constitutional: no symptoms EENTM: throat pain; throat swelling Cardiovascular: no symptoms Respiratory: cough; chest congestion, excessive phlegm production Gastrointestinal: no symptoms Genitourinary: no symptoms Musculoskeletal: no symptoms Neurological: no symptoms Psychological: no symptoms Endocrine: no symptoms Hematological/Lymphatic: no symptoms Review of other systems All other systems reviewed and negative. pt 11 wks preg (PORTILLO COBURN NP) Physical Exam Related Data Allergies: Coded Allergies: No Known Allergies (Unverified , 11/14/14) Triage Vital Signs Vital Signs Date Time Temp Pulse Resp B/P (MAP) Pulse Ox O2 Delivery O2 Flow Rate FiO2 12/18/19 15:41 97.6 99 16 148/84 98 Vital signs reviewed: Yes (PORTILLO COBURN NP) Physical Exam CONSTITUTIONAL Constitutional: well-developed, well-nourished HENT HENT: normocephalic, atraumatic, oropharynx clear/moist, nose normal, erythema (minimal pharynx eyrthema), other (uvula midline ); nasal discharge, nasal congestion, rhinorrhea, oropharyngeal exudate, tonsillar excudate, pharynx abnormal HENT L/R: left ext ear normal, right ext ear normal EYES Eyes: PERRL, conjunctivae normal NECK Neck: ROM normal PULMONARY Pulmonary: effort normal, breath sounds normal CARDIOVASCULAR Cardiovascular: regular rhythm, heart sounds normal, capillary refill normal, normal rate GASTROINTESTINAL Abdominal: soft, nontender, bowel sounds normal GENITOURINARY Genitourinary: exam deferred SKIN Skin: warm, dry MUSCULOSKELETAL Musculoskeletal: ROM normal NEUROLOGICAL Neurological: alert, oriented x 3, no gross motor or sensory deficits PSYCHOLOGICAL Psychological: mood/affect normal, judgement normal Exam - additional comments denies vag bleeding d/c dysuria abd n/v/d flores dizziness cp sob (PORTILLO COBURN NP) Critical Care Time Subsequent provider I assumed direction of critical care for this patient from another provider of my specialty. (PORTILLO COBURN NP) Assessment & Plan Reassessment Reassessment 23y f presented to ed c/o sore throat fever cough x 3 days - minimal pharynx er ythema on exam afebrile lungs cta o2 sat 99% rm air - discussed plan of care w/ Dr Collins - (PORTILLO COBURN NP) Assessment & Plan Final Impression: (1) ACUTE PHARYNGITIS, UNSPECIFIED Assessment & Plan discussed plan of care and f/u instructions 1. follow up with your doctor /obgyn in 1-2 days without fail 2. increase oral fluids 3. Tylenol as needed 4. z-pack (PORTILLO COBURN NP) Last Vital Signs Date Time Temp Pulse Resp B/P (MAP) Pulse Ox O2 Delivery O2 Flow Rate FiO2 12/18/19 15:41 97.6 99 16 148/84 98 (PORTILLO COBURN NP) Home Meds Active Scripts Butalb/Acetaminophen/Caffeine (Fioricet 50-300-40 mg Capsule) 1 Each Capsule, 1 TAB PO Q8HR, #20 Prov:COMFORT TEJEDA DO 07/23/19 Physician Attestation Provider Attestation i discussed with advanced practitioners and agree with diagnosis, treatment and plan (ERIKA COLLINS) PORTILLO COBURN NP December 18, 2019 16:16 ERIKA COLLINS Dec 19, 2019 08:58
== END 2019-12-18 16:09 | disposition home or self-care (01) ==
LOC: ER 15:28
DX: O26.91 Pregnancy related conditions, unspecified, first trimester (principal); R50.9 Fever, unspecified; J02.9 Acute pharyngitis, unspecified; R05 Cough
CPT/HCPCS: 99282